=== PATIENT | male | born 1960 | race Caucasian/White ===

== ENCOUNTER 2017-10-23 08:33 | Emergency (ER) | payer OTHER, MEDICAID ==
[2017-10-23] MEDS ORDERED: IPRATROPIUM/ALBUTEROL 3 ML DEYVIAL IH ONE (09:15)
--- NOTE | 2017-10-23 09:18 | EDPHY ---
H & P Stated Complaint: Cough, body aches, general malaise for 2 days - Personal History Current Tetanus Diphtheria and Acellular Pertussis (TDAP): Yes - Medical/Surgical History Hx Asthma: No Hx Chronic Respiratory Disease: No Hx Diabetes: No Hx Cardiac Disease: No Hx Renal Disease: No Hx Cirrhosis: No Hx Alcoholism: No Hx HIV/AIDS: No Hx Splenectomy or Spleen Trauma: No Other PMH: Schizo. - Social History Smoking Status: Current every day smoker Time Seen by Provider: 10/23/17 09:09 HPI/ROS: CHIEF COMPLAINT: Cough sinus congestion HISTORY OF PRESENT ILLNESS: 57-year-old male history of schizophrenia, daily tobacco use, complaining of 2-3 days of rhinorrhea, nonproductive cough, sinus congestion, sore throat. His stools have been slightly looser than usual. No melena hematochezia. No abdominal pain. No dyspnea. No nuchal rigidity. No headache. No otalgia. No back pain. PRIMARY CARE PROVIDER:None REVIEW OF SYSTEMS: A ten point review of systems was performed and is negative with the exception of the items mentioned in the HPI PAST MEDICAL & SURGICAL HISTORY: Schizophrenia SOCIAL HISTORY:Daily tobacco use. Works at [employer] in [place] PHYSICAL EXAM (Prior to examination, patient consented to physical exam, hands were washed and my usual and customary physical exam procedures followed) 1) GENERAL: Well-developed, well-nourished, alert and oriented. Appears to be in no acute distress. 2) HEAD: Normocephalic, atraumatic 3) HEENT: Pupils equal, round, reactive to light bilaterally. Sclera anicteric. Nasopharynx, oropharynx, clear, no lesions. Ears bilaterally with normal tympanic membranes. 4) NECK: Full range of motion, no meningeal signs. 5) LUNGS: Bilateral end-expiratory wheeze with 6) HEART: Regular rate and rhythm, no murmur, no heave, no gallop. 7) ABDOMEN: No guarding, no rebound, no focal tenderness, negative McBurney's, negative Londono's, negative Rovsing's, negative peritoneal sign, 8) MUSCULOSKELETAL: Moving all extremities, no focal areas of tenderness, no obvious trauma. No peripheral edema or discoloration. 9) BACK: No CVA tenderness, no midline vertebral tenderness, no fluctuance, no step-off, no obvious trauma, no visual or palpable abnormality. 10) SKIN: No rash, no petechiae. 11) Psychiatric: Patient is oriented X 3, there is no agitation. DIFFERENTIAL DIAGNOSIS: In no particular order include but limited to bronchiolitis, pneumonia, meningitis (Maria De Jesus Obrien) Constitutional: Initial Vital Signs Temperature (C) 36.8 C 10/23/17 08:42 Heart Rate 60 10/23/17 08:42 Respiratory Rate 18 10/23/17 08:42 Blood Pressure 118/58 L 10/23/17 08:42 O2 Sat (%) 91 L 10/23/17 08:42 O2 Delivery Mode Room Air Allergies/Adverse Reactions: codeine Allergy (Verified 08/26/13 17:21) Home Medications: Medication Instructions Recorded Prozac 10 MG (RX) 08/26/13 Restoril 08/26/13 Albuterol [Proventil Inhaler HFA 1 - 2 puffs IH Q4PRN PRN #1 mdi 10/23/17 (*)] Azithromycin [Zithromax] 500 mg PO DAILY #1 tablet 10/23/17 Zoloft 100mg (*) 10/23/17 Medical Decision Making - Diagnostics Imaging Results: Images reviewed myself (Maria De Jesus Obrien) ED Course/Re-evaluation: 10:41 a.m.: Re-evaluation, feeling improvement after DuoNeb treatment, lungs are clear bilaterally, maintaining normal saturations. Discussed his imaging results. Recommend smoking cessation. Will discharge home with albuterol, with will discharge home with azithromycin prescription. Will hold on steroids as he notes that he has had unpleasant reaction to steroids in the past combined with history of schizophrenia. Usual and customary respiratory precautions instructions provided. I saw this patient independently based on established practice protocols. Care of patient under supervision of secondary supervising physician Dr Mayes . (Maria De Jesus Obrien) Other Provider: The patient was evaluated and managed by the Physician Plant Taxonomist. My co- signature indicates that I have reviewed this chart and I agree with the findings and plan of care as documented. I am the secondary supervising physician. (Janelle Mayes) - Data Points Medications Given: Discontinued Medications Albuterol/Ipratropium (Duoneb) 3 ml IH EDNOW ONE Stop: 10/23/17 09:16 Last Admin: 10/23/17 09:21 Dose: 3 ml Departure - Departure Disposition: Home, Routine, Self-Care Clinical Impression: Acute bronchitis Condition: Good Instructions: Acute Bronchitis (ED) Additional Instructions: Return to the emergency department immediately for change in breathing habits, change in voice, change in swallowing habits, change in mental status, or any other symptoms that concern you. Referrals: [facility],. [Clinic] - As per Instructions Stand Alone Forms: Work Excuse Prescriptions: Albuterol [Proventil Inhaler HFA (*)] 1 - 2 puffs IH Q4PRN PRN #1 mdi PRN Reason: Cough, Moderate Azithromycin [Zithromax] 500 mg PO DAILY #1 tablet
[2017-10-23 11:12] VITALS: BP 118/68
== END 2017-10-23 11:12 | disposition home or self-care (01) ==
DX: J20.9 Acute bronchitis, unspecified (principal); F17.200 Nicotine dependence, unspecified, uncomplicated

== ENCOUNTER 2018-01-19 15:44 | Emergency (ER) | payer OTHER, MEDICAID ==
--- NOTE | 2018-01-19 17:00 | EDPHY ---
H & P Stated Complaint: bilat knee weakness "they buckle" x years-no new trauma Time Seen by Provider: 01/19/18 16:57 HPI/ROS: HPI: This is a 57-year-old male who presents with Chief Complaint: bilateral knee weakness "they buckle" x years-no new trauma Location: Bilateral knees Quality: Pain Duration: Several months Signs and Symptoms: No bleeding, no radiation, no numbness, no weakness, no tingling, no incontinence, no decreased range of motion, no swelling, no pain, no fever Timing: Daily Severity: Moderate Context: Patient has a history of schizoaffective disorder, presents with several month history of right greater than left bilateral anterior knee pain with episodes of"they buckle." Has taken Excedrin with mild relief. 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 Denies radiation, weakness, decreased range of motion. No trauma or injury. No history of gout. Modifying Factors: Excedrin with mild relief Comment: ROS: A comprehensive 10 system review of systems is otherwise negative aside from elements mentioned in the history of present illness. MEDICAL/SURGICAL/SOCIAL HISTORY: Medical history: Schizoaffective Surgical history: Denies Social history: Smoker. CONSTITUTIONAL: Untidy, middle-aged white male, appears older than stated age, awake and alert, no obvious distress HEENT: Atraumatic and normocephalic. NECK: supple EXTREMITIES: 2/2 pulses, strength 5/5, bilateral KNEE: Mild crepitus with extension; no effusion, no medial and lateral joint line tenderness, full extension to 180, flexion to 120. No pain with varus and valgus exam. No pain with anterior drawer or posterior drawer test. DIP/PIP/MCP flexion/ extension intact with good light touch sensation. no deformities, no clubbing, no cyanosis or edema. NEUROLOGICAL: no focal neuro deficits. GCS 15. Light touch sensation intact. SKIN: Warm and dry, no erythema. no rash. Good capillary refill. Source: Patient Exam Limitations: No limitations - Medical/Surgical History Hx Asthma: No Hx Chronic Respiratory Disease: No Hx Diabetes: No Hx Cardiac Disease: No Hx Renal Disease: No Hx Cirrhosis: No Hx Alcoholism: No Hx HIV/AIDS: No Hx Splenectomy or Spleen Trauma: No Other PMH: Schizo. affective - Social History Smoking Status: Current every day smoker Constitutional: Initial Vital Signs Temperature (C) 36.7 C 01/19/18 15:48 Heart Rate 101 H 01/19/18 15:48 Respiratory Rate 16 01/19/18 15:48 Blood Pressure 155/85 H 01/19/18 15:48 O2 Sat (%) 92 01/19/18 15:48 O2 Delivery Mode Room Air Allergies/Adverse Reactions: codeine Allergy (Verified 08/26/13 17:21) Home Medications: Medication Instructions Recorded Ibuprofen [Ibu] 800 mg PO Q8 PRN #12 tablet 01/19/18 Lamkin Carbonate 01/19/18 Olanzapine 01/19/18 traZODone 01/19/18 Medical Decision Making - Diagnostics Imaging Results: Imaging Impressions Knee X-Ray 01/19/18 16:06 Impression: Negative bilateral knee radiographs. Knee X-Ray 01/19/18 16:09 Impression: Negative bilateral knee radiographs. Procedures: Procedure: Splint placement. A bilateral Shorty wraps were applied by the Emergency Room polygraph technician. After application of the splint I returned and re-examined the patient. The splint was adequately immobilizing the joint and distal to the splint the patient's circulation and sensation was intact. ED Course/Re-evaluation: Bilateral knee x-rays ordered my read via PAC shows no significant degenerative changes, no fracture, no effusion. Shorty wrap placed on both knees and given a prescription for ibuprofen 800 mg Ortho referral as needed No signs of neurovascular compromise/tenting of skin/compartment syndrome/ extremities and joints examined above and below area of concern and are neurovascularly intact/septic arthritis/gouty arthropathy. This patient was seen under the supervision of my secondary supervising physician. I evaluated care for this patient independently. Discussed this patient with Dr. Parra. Differential Diagnosis: Knee injury while [] including but not limited to fracture, ACL injury, contusion, muscular strain, and meniscus injury. Departure - Departure Disposition: Home, Routine, Self-Care Clinical Impression: Bilateral chronic knee pain Condition: Good Instructions: Knee Pain (ED) Additional Instructions: Wear the Shorty wrap while out of bed until pain free. Take Tylenol 650 mg every 4 hours and/or Ibuprofen 800 mg every 8 hours with food as needed for pain. Follow up with [facility] if symptoms continue to persist or worsen. The x-rays obtained in the emergency department today demonstrate no evidence of an obvious fracture. Return to the ER immediately if you experience new or worsening pain, discoloration, numbness, tingling, or any other symptoms that concern you. Referrals: [facility],. [Clinic] - As per Instructions Stand Alone Forms: Work Excuse Prescriptions: Ibuprofen [Ibu] 800 mg PO Q8 PRN #12 tablet PRN Reason: Pain, Moderate
[2018-01-19 17:40] VITALS: BP 119/66
== END 2018-01-19 17:40 | disposition home or self-care (01) ==
DX: M25.561 Pain in right knee (principal); M25.562 Pain in left knee; M62.81 Muscle weakness (generalized); F17.200 Nicotine dependence, unspecified, uncomplicated

== ENCOUNTER 2018-04-30 13:00 | Inpatient (IN) | payer MEDICAID, OTHER ==
[2018-04-30] MEDS ORDERED: IPRATROPIUM/ALBUTEROL 3 ML DEYVIAL IH ONE ×2 (14:48→14:50)
[2018-04-30] MEDS ORDERED: NS 1,000 ML IV ONE (14:49)
--- NOTE | 2018-04-30 14:51 | EDPHY ---
H & P Stated Complaint: SOB, cough Time Seen by Provider: 04/30/18 14:37 HPI/ROS: CHIEF COMPLAINT: Cough, shortness of breath HISTORY OF PRESENT ILLNESS: 58-year-old male with schizoaffective disorder presents with cough and shortness of breath. 2 weeks ago he was diagnosed with influenza. He did not take Tamiflu. He has had a persistent cough since the diagnosis of influenza, gradually worsening and associated with shortness of breath. Associated with lack of appetite and loose stools. No known fever. REVIEW OF SYSTEMS: complete 10 point ROS reviewed and is negative except for the noted elements in the HPI - Personal History Current Tetanus/Diphtheria Vaccine: Yes Current Tetanus Diphtheria and Acellular Pertussis (TDAP): Yes - Medical/Surgical History Hx Asthma: No Hx Chronic Respiratory Disease: No Hx Diabetes: No Hx Cardiac Disease: No Hx Renal Disease: No Hx Cirrhosis: No Hx Alcoholism: No Hx HIV/AIDS: No Hx Splenectomy or Spleen Trauma: No Other PMH: Schizo. affective - Social History Smoking Status: Current every day smoker Alcohol Use: Sober Drug Use: None - Physical Exam Exam: General Appearance: Alert, pleasant, nontoxic-appearing Eyes: Pupils equal and round, no conjunctival pallor ENT, Mouth: Mucous membranes moist Neck: Normal inspection Respiratory: Diffuse inspiratory and expiratory wheezing Cardiovascular: Regular rate and rhythm Gastrointestinal: Abdomen is soft and nontender Neurological: A&O, nonfocal, normal gait Skin: Warm and dry, no rash Extremities: Nontender, no pedal edema Psychiatric: Mood and affect normal Constitutional: Initial Vital Signs Temperature (C) 36.7 C 04/30/18 13:06 Heart Rate 80 04/30/18 13:06 Respiratory Rate 20 04/30/18 13:06 Blood Pressure 94/64 L 04/30/18 13:06 O2 Sat (%) 93 04/30/18 13:06 O2 Delivery Mode Nasal Cannula O2 (L/minute) 2 Allergies/Adverse Reactions: No Known Allergies Allergy (Verified 04/30/18 13:05) Home Medications: Medication Instructions Recorded Acetaminophen [Tylenol 325mg (*)] 650 mg PO Q4HRS PRN tab 03/15/18 Loperamide HCl [Imodium 2 mg (*)] 2 mg PO QID PRN cap 03/15/18 Hydroxyzine Pamoate [Vistaril] 50 mg PO BID PRN 04/30/18 Ibuprofen [Motrin (*)] 800 mg PO Q6H PRN 04/30/18 Sertraline HCl [Zoloft 100mg (*)] 200 mg PO DAILY 04/30/18 traZODone [traZODONE 100MG (*)] 100 mg PO HS 04/30/18 Medical Decision Making - Diagnostics Imaging Results: CXR: LLL infiltrate Imaging: I viewed and interpreted images myself ED Course/Re-evaluation: This pt presents with persistent cough, hypoxia and bronchospasm, concerning for pneumonia. IV NS 1 liter given. Duoneb and Solumedrol 125mg IV given. O2 sat 88% RA after neb. CXR: LLL pneumonia. Blood cx's done, Rocephin and Zithromax IV given. He does not meet SIRS criteria, though initial BP borderline, improved after IVF. Serum lactate normal. The hospitalist service was consulted for admission. Pt stable throughout ED stay. Differential Diagnosis: includes though not limited to acute bronchitis, PE, PTX, empyema, pulm edema - Data Points Laboratory Results: Laboratory Results 04/30/18 15:52 04/30/18 15:52 Microbiology Results: MICROBIOLOGY 04/30/18 13:24 Blood Blood Culture - Preliminary Staphylococcus Hominis 04/30/18 13:24 Blood Blood Panel (PCR) - Final Staph Coagulase Negative 04/30/18 15:52 Blood Blood Culture - Preliminary Medications Given: Acetaminophen (Tylenol) 650 mg PO Q4HRS PRN PRN Reason: Pain, Mild/Fever, Can Take PO Stop: 10/27/18 16:37 Last Admin: 05/02/18 16:16 Dose: 650 mg Albuterol/Ipratropium (Duoneb) 3 ml IH Q6 JOLANTA Stop: 10/28/18 17:59 Last Admin: 05/02/18 17:00 Dose: 3 ml Enoxaparin Sodium (Lovenox) 40 mg SC DAILY JOLANTA Stop: 10/28/18 08:59 Last Admin: 05/02/18 09:40 Dose: 40 mg Guaifenesin (Mucinex) 600 mg PO BID JOLANTA Stop: 10/27/18 20:59 Last Admin: 05/02/18 09:40 Dose: 600 mg Guaifenesin/Dextromethorphan (Robitussin Dm Oral Liquid) 10 ml PO Q4HRS PRN PRN Reason: Cough, Moderate Stop: 10/27/18 16:38 Last Admin: 05/02/18 05:55 Dose: 10 ml Hydroxyzine HCl (Hydroxyzine Hcl) 25 mg PO Q6HRS PRN PRN Reason: Anxiety Stop: 10/27/18 17:15 Last Admin: 05/02/18 03:49 Dose: 25 mg Azithromycin 500 mg/ Sodium (Chloride) 255 mls @ 255 mls/hr IV DAILY JOLANTA PRN Reason: Protocol Stop: 05/31/18 08:59 Last Admin: 05/02/18 10:33 Dose: 255 mls Ceftriaxone Sodium/Dextrose (Rocephin 1 Gm (Premix)) 50 mls @ 100 mls/hr IV DAILY JOLANTA PRN Reason: Protocol Stop: 05/31/18 08:59 Last Admin: 05/02/18 09:40 Dose: 50 mls Ibuprofen (Motrin) 800 mg PO Q6H PRN PRN Reason: Pain, Mild Stop: 10/28/18 12:01 Last Admin: 05/02/18 03:47 Dose: 800 mg Loperamide HCl ( Imodium) 2 mg PO QID PRN PRN Reason: Diarrhea/Loose Stools Stop: 10/29/18 15:10 Last Admin: 05/02/18 16:16 Dose: 2 mg Nicotine (Nicoderm Cq) 21 mg TD DAILY [facility] Stop: 10/28/18 12:14 Last Admin: 05/02/18 09:40 Dose: 21 mg Ondansetron HCl (Zofran) 4 mg IVP Q4HRS PRN PRN Reason: Nausea/Vomiting, Can't Take PO Stop: 10/27/18 16:37 Last Admin: 05/02/18 05:55 Dose: 4 mg Prednisone (Prednisone) 40 mg PO DAILY JOLANTA Stop: 10/28/18 12:14 Last Admin: 05/02/18 09:40 Dose: 40 mg Sertraline HCl (Zoloft) 200 mg PO DAILY [facility] Stop: 10/29/18 08:59 Last Admin: 05/02/18 09:40 Dose: 200 mg Trazodone HCl (Trazodone) 100 mg PO HS [facility] Stop: 10/28/18 20:59 Last Admin: 05/01/18 20:26 Dose: 100 mg Discontinued Medications Albuterol/Ipratropium (Duoneb) 3 ml IH EDNOW ONE Stop: 04/30/18 14:49 Last Admin: 04/30/18 15:15 Dose: 3 ml Albuterol/Ipratropium (Duoneb) 3 ml IH EDNOW ONE Stop: 04/30/18 14:51 Last Admin: 04/30/18 15:16 Dose: 3 ml Sodium Chloride (Ns) 1,000 mls @ 0 mls/hr IV ONCE ONE; Wide Open PRN Reason: Protocol Stop: 04/30/18 14:50 Last Admin: 04/30/18 15:16 Dose: 1,000 mls Azithromycin 500 mg/ Sodium (Chloride) 255 mls @ 255 mls/hr IV EDNOW ONE PRN Reason: Protocol Stop: 04/30/18 16:35 Last Admin: 04/30/18 16:50 Dose: 255 mls Ceftriaxone Sodium/Dextrose (Rocephin 1 Gm (Premix)) 50 mls @ 100 mls/hr IV EDNOW ONE PRN Reason: Protocol Stop: 04/30/18 16:04 Last Admin: 04/30/18 16:01 Dose: 50 mls Sodium Chloride (Ns) 1,000 mls @ 100 mls/hr IV CONT JOLANTA Stop: 05/01/18 02:44 Last Admin: 04/30/18 18:03 Dose: 1,000 mls Ibuprofen (Motrin) 600 mg PO EDNOW ONE Stop: 04/30/18 15:08 Last Admin: 04/30/18 15:08 Dose: 600 mg Oseltamivir Phosphate (Tamiflu) 75 mg PO BIDMEAL JOLANTA Stop: 05/05/18 08:01 Last Admin: 05/01/18 11:26 Dose: Not Given Pneumococcal Polyvalent Vaccine (Pneumovax 23) 0.5 ml IM .ONCE ONE Stop: 05/01/18 12:11 Last Admin: 05/01/18 13:02 Dose: 0.5 ml Departure - Departure Disposition: [facility] Acute Condition: Fair
[2018-04-30] MEDS ORDERED: IBUPROFEN 600 MG TAB PO ONE ×2 (15:04→15:07)
[2018-04-30] MEDS ORDERED: AZITHROMYCIN IV 500 MG in NS 250 ML IV ONE (15:36)
[2018-04-30 16:12] LABS: PLATELET COUNT 245 10^3/uL (150-400)
[2018-04-30] MEDS ORDERED: ONDANSETRON DISINTEGRATING 4 MG TAB PO PRN (16:38)
[2018-04-30] MEDS ORDERED: ALBUTEROL 3 ML DEYVIAL IH PRN (16:38)
[2018-04-30] MEDS ORDERED: ONDANSETRON 4 MG/2 ML VIAL IVP PRN (16:38)
[2018-04-30] MEDS ORDERED: NS 1,000 ML IV SCH (16:45)
--- NOTE | 2018-04-30 17:07 | PDGENHP ---
History and Physical - Chief Complaint cough, SOB - History of Present Illness 58 yo male with h/o schizoaffective disorder presents to ED with cough, SOB and body aches. His symptoms started >2 weeks ago with diarrhea and vomiting. He says he was seen here and diagnosed with influenza, but I do not see a record of that. Over the past several days, he has developed productive cough and body aches. He continues to have diarrhea with urgency, which he describes as watery. He has not vomited for several days, but reports poor oral intake. He denies CP. No fevers, chills or rigors. In the ED, CXR was suggestive of LLL pneumonia. He was given a fluid bolus, blood cultures were drawn, he received IV Ceftriaxone and Azithromycin and he is admitted for further management. History Information - Allergies/Home Medication List Allergies/Adverse Reactions: No Known Allergies Allergy (Verified 04/30/18 13:05) Home Medications: Vistaril 04/30/18 [Last Taken Unknown] Zoloft 25mg (*) 04/30/18 [Last Taken Unknown] traZODone 04/30/18 [Last Taken Unknown] I have personally reviewed and updated: family history, medical history, social history, surgical history - Past Medical History Additional medical history: Schizoaffective disorder - Surgical History Reports: no pertinent surgical hx - Family History Positive for: non-pertinent - Social History Smoking Status: Current every day smoker Alcohol Use: Sober Drug Use: None Review of Systems Review of Systems: ROS: 10pt was reviewed & negative except for what was stated in HPI & below Physical Exam Physical Exam: Temp Pulse Resp BP Pulse Ox 36.7 C 83 16 135/90 H 98 04/30/18 16:01 04/30/18 16:01 04/30/18 16:01 04/30/18 16:01 04/30/18 16:01 Constitutional: no apparent distress Eyes: PERRL Ears, Nose, Mouth, Throat: moist mucous membranes Cardiovascular: tachycardia Respiratory: no respiratory distress, reduced air movement, inspiratory crackles Gastrointestinal: normoactive bowel sounds, soft, non-tender abdomen Skin: warm Musculoskeletal: full muscle strength Neurologic: AAOx3 Psychiatric: interacting appropriately Lab Data & Imaging Review 04/30/18 15:52 04/30/18 15:52 WBC 11.46 10^3/uL (3.80-9.50) H 04/30/18 15:52 RBC 4.51 10^6/uL (4.40-6.38) 04/30/18 15:52 Hgb 13.1 g/dL (13.7-17.5) L 04/30/18 15:52 Hct 39.5 % (40.0-51.0) L 04/30/18 15:52 MCV 87.6 fL (81.5-99.8) 04/30/18 15:52 MCH 29.0 pg (27.9-34.1) 04/30/18 15:52 MCHC 33.2 g/dL (32.4-36.7) 04/30/18 15:52 RDW 15.5 % (11.5-15.2) H 04/30/18 15:52 Plt Count 245 10^3/uL (150-400) 04/30/18 15:52 MPV 10.4 fL (8.7-11.7) 04/30/18 15:52 Neut % (Auto) Not Reported 04/30/18 15:52 Lymph % (Auto) Not Reported 04/30/18 15:52 [place] % (Auto) Not Reported 04/30/18 15:52 Eos % (Auto) Not Reported 04/30/18 15:52 Baso % (Auto) Not Reported 04/30/18 15:52 Nucleat RBC Rel Count Not Reported 04/30/18 15:52 Absolute Neuts (auto) Not Reported 04/30/18 15:52 Absolute Lymphs (auto) Not Reported 04/30/18 15:52 Absolute Monos (auto) Not Reported 04/30/18 15:52 Absolute Eos (auto) Not Reported 04/30/18 15:52 Absolute Basos (auto) Not Reported 04/30/18 15:52 Absolute Nucleated RBC Not Reported 04/30/18 15:52 Immature Gran % Not Reported 04/30/18 15:52 Seg Neutrophils % 39.4 % 04/30/18 15:52 Band Neutrophils % 43.5 % 04/30/18 15:52 Lymphocytes % 13.1 % 04/30/18 15:52 Monocytes % 1.0 % 04/30/18 15:52 Eosinophils % 3.0 % 04/30/18 15:52 Basophils % 0.0 % 04/30/18 15:52 Metamyelocytes % 0.0 % 04/30/18 15:52 Myelocytes % 0.0 % 04/30/18 15:52 Promyelocytes % 0.0 % 04/30/18 15:52 Blast Cells % 0.0 % 04/30/18 15:52 Immature Gran # Not Reported 04/30/18 15:52 Absolute Seg Neuts 4.52 10^3/uL (1.70-6.50) 04/30/18 15:52 Absolute Band Neuts 4.99 10^3/uL (0.00-0.70) H 04/30/18 15:52 Absolute Lymphocytes 1.50 10^3/uL (1.00-3.00) 04/30/18 15:52 Absolute Monocytes 0.11 10^3/uL (0.30-0.80) L 04/30/18 15:52 Absolute Eosinophils 0.34 10^3/uL (0.03-0.40) 04/30/18 15:52 Absolute Basophils 0.00 10^3/uL (0.02-0.10) L 04/30/18 15:52 Absolute Metamyelocyte 0.00 10^3/mL (0.00-0.00) 04/30/18 15:52 Absolute Myelocytes 0.00 10^3/mL (0.00-0.00) 04/30/18 15:52 Absolute Promyelocytes 0.00 10^3/uL (0.00-0.00) 04/30/18 15:52 Absolute Plasma Cells 0.00 10^3/uL (0.00-0.00) 04/30/18 15:52 Nucleated RBCs 0 /100 WBC (0-0) 04/30/18 15:52 RBC/WBC/PLT Morphology NORMAL (NORMAL) 04/30/18 15:52 Absolute Blast Cells 0.00 10^3/uL (0.00-0.00) 04/30/18 15:52 Plasma Cells % 0.0 % 04/30/18 15:52 Platelet Estimate ADEQUATE (ADEQ) 04/30/18 15:52 VBG Lactic Acid 1.2 mmol/L (0.7-2.1) 04/30/18 15:52 Sodium 137 mEq/L (135-145) 04/30/18 15:52 Potassium 4.5 mEq/L (3.5-5.2) 04/30/18 15:52 Chloride 103 mEq/L (97-110) 04/30/18 15:52 Carbon Dioxide 27 mEq/l (22-31) 04/30/18 15:52 Anion Gap 7 mEq/L (6-14) 04/30/18 15:52 BUN 40 mg/dL (7-23) H 04/30/18 15:52 Creatinine 1.1 mg/dL (0.7-1.3) 04/30/18 15:52 Estimated GFR > 60 04/30/18 15:52 Glucose 102 mg/dL (70-100) H 04/30/18 15:52 Calcium 9.0 mg/dL (8.5-10.4) 04/30/18 15:52 Visualized and Interpreted Chest x-ray results: Yes Chest X-Ray results: infiltrate Assessment & Plan Assessment: CAP - LLL infiltrate on CXR. Prior influenza hx unclear. Blood cultures pending. -Ceftriaxone/Azithromycin -send sputum Cx -based on +influenza hx will start tamiflu and send RVP, d/c tamiflu if negative -supportive care with anti-tussives, prn nebs AHRF - 2/2 above, requiring 2 LPM on admission -tx for pna as above -wean O2 as able Diarrhea - send GI PCR Schizoaffective disorder - resume home meds when med rec completed Full code DVT PPLX - Lovenox Dispo - admit to inpt, anticipate >48 hrs hospitalization for ongoing management of pneumonia and hypoxemia
[2018-04-30] MEDS ORDERED: OSELTAMIVIR PHOSPHATE 75 MG CAP ONE (18:05)
[2018-04-30] MEDS: OSELTAMIVIR PHOSPHATE 75 MG CAP PO SCH (18:15)
[2018-04-30] MEDS: guaiFENesin 600 MG TAB.ER PO SCH (20:55)
[2018-04-30] MEDS: ACETAMINOPHEN 325 MG TAB PO PRN (20:55)
[2018-05-01 06:04] LABS: PLATELET COUNT 229 10^3/uL (150-400)
[2018-05-01] MEDS: ENOXAPARIN 40 MG/0.4 ML SYR SC SCH (09:45)
[2018-05-01] MEDS: guaiFENesin 600 MG TAB.ER PO SCH ×2 (09:49→20:26)
--- NOTE | 2018-05-01 09:49 | PDMN ---
Medical Necessity Medical necessity: Pt meets INPT criteria per MD as of 04/30/18 and [facility] [place] Pneumonia, Community Acquired (est. LOS >2 MN for eval/tx of pneumonia with LLL infiltrate, influenza, hypoxemia, diarrhea, comorbid schizoaffective disorder).
[2018-05-01] MEDS: AZITHROMYCIN IV 500 MG in NS 250 ML IV SCH (10:41)
[2018-05-01] MEDS: OSELTAMIVIR PHOSPHATE 75 MG CAP PO SCH (11:26)
[2018-05-01] MEDS: ACETAMINOPHEN 325 MG TAB PO PRN ×2 (11:37→20:26)
[2018-05-01] MEDS ORDERED: hydrOXYzine HCL 50 MG TAB PO PRN (12:02)
[2018-05-01] MEDS ORDERED: PNEUMOCOCCAL 0.5ML VACCINE VIAL (PNEUMOVAX 23) IM ONE (12:10)
[2018-05-01] MEDS: predniSONE 20 MG TAB PO SCH (13:04)
[2018-05-01] MEDS: NICOTINE 21 MG/24 HR PATCH TD SCH (13:04)
[2018-05-01] MEDS ORDERED: IPRATROPIUM/ALBUTEROL 3 ML DEYVIAL ONE (15:25)
[2018-05-01] MEDS: IPRATROPIUM/ALBUTEROL 3 ML DEYVIAL IH SCH ×2 (15:35→20:48)
[2018-05-01] MEDS: hydrOXYzine HCL 25 MG TAB PO PRN (15:46)
[2018-05-01] MEDS: IBUPROFEN 800 MG TAB PO PRN ×2 (15:47→21:30)
--- NOTE | 2018-05-01 16:54 | ASMTCMCOM ---
CM Note CM Note Notes: Reviewed chart. Pt admitted for pneumonia. History includes schizoaffective disorder. Pt is a current every day smoker. He is single and lives alone. Pt has a case sealer/advocate named Bonny Cantu / . Discharge needs remain unclear at this time. Anticipate pt will likely discharge home independently when medically stable. CM will continue to follow for any potential needs. Discharge Plan: Likely independent Date Signed: 05/01/2018 04:54 PM Electronically Signed By:Katey Humphries RN
--- NOTE | 2018-05-01 17:54 | HOSPPROG ---
Hospitalist Progress Note Assessment/Plan: * Pneumonia -Ceftriaxone/azithro * COPD exacerbation -add prednisone and scheduled nebs * Acute respiratory failure -increased wheezing today with increased WOB noted -continue O2 and respiratory support * Viral bronchitis - coronavirus -suspect initial viral bronchitis with subsequent bacterial superinfection * Schizoaffective disorder * 04/23 BC coag negative staph - contaminant Subjective: Feels terrible Objective: Vital Signs Temp Pulse Resp BP Pulse Ox 36.4 C 97 18 104/50 L 96 05/01/18 15:24 05/01/18 15:35 05/01/18 15:35 05/01/18 15:24 05/01/18 15:35 Microbiology 05/01/18 10:38 - Final Sputum, Expectorated 05/01/18 10:47 Gastrointestinal Tract Panel (PCR) - Final Stool No Organism Detected By Pcr 04/30/18 16:55 Respiratory Panel (PCR) - Final Nasal, Sinus - Swab Coronovirus Oc43 Detected Laboratory Results 05/01/18 05:35 05/01/18 05:35 04/30/18 05/01/18 05/02/18 05:59 05:59 05:59 Intake Total 100 Balance 100 CXR viewed - my personal interpretation is - significant LLL infiltrate old chart reviewed - was dc from inpatient psych 03/07 - Physical Exam Constitutional: uncomfortable, other (lying in bed, curled in ball with increased WOB) Cardiovascular: regular rate and rhythym, no murmur, rub, or gallop Respiratory: expiratory wheeze, respiratory distress, rhonchi Gastrointestinal: normoactive bowel sounds, soft, non-tender abdomen, no palpable masses Skin: no rashes or abrasions, no fluctuance, no induration Neurologic: AAOx3, sensation intact bilaterally Psychiatric: interacting appropriately, not anxious, not encephalopathic, thought process linear ICD10 Worksheet Patient Problems: Problems Problem Status Onset Nicotine dependence with withdrawal Acute Amphetamine abuse in remission Acute PTSD (post-traumatic stress disorder) Chronic Unspecified psychosis Acute
[2018-05-01] MEDS: traZODone 100 MG TAB PO SCH (20:26)
[2018-05-02] MEDS: IBUPROFEN 800 MG TAB PO PRN ×2 (03:47→18:05)
[2018-05-02] MEDS: hydrOXYzine HCL 25 MG TAB PO PRN (03:49)
[2018-05-02 05:46] LABS: PLATELET COUNT 246 10^3/uL (150-400)
[2018-05-02] MEDS: ACETAMINOPHEN 325 MG TAB PO PRN ×2 (05:55→16:16)
[2018-05-02] MEDS: GUAIFENESIN/DM 10 ML UDCUP PO PRN ×2 (05:55→22:08)
[2018-05-02] MEDS: IPRATROPIUM/ALBUTEROL 3 ML DEYVIAL IH SCH ×4 (06:25→21:23)
[2018-05-02] MEDS: SERTRALINE HCL 100 MG TAB PO SCH (09:40)
[2018-05-02] MEDS: guaiFENesin 600 MG TAB.ER PO SCH ×2 (09:40→20:16)
[2018-05-02] MEDS: ENOXAPARIN 40 MG/0.4 ML SYR SC SCH (09:40)
[2018-05-02] MEDS: predniSONE 20 MG TAB PO SCH (09:40)
[2018-05-02] MEDS: NICOTINE 21 MG/24 HR PATCH TD SCH (09:40)
[2018-05-02] MEDS: AZITHROMYCIN IV 500 MG in NS 250 ML IV SCH (10:33)
[2018-05-02] MEDS: LOPERAMIDE HCL 2 MG CAP PO PRN (16:16)
--- NOTE | 2018-05-02 17:09 | ASMTCMCOM ---
CM Note CM Note Notes: CM met with patient, the visit was difficult as patient experienced frequent bouts of coughing. Patient states he is currently living at the [facility], CM gave him the phone numbers to call so he can inform the half-way he is currently inpatient. 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 CM called with patient to [phone], we asked for Addie Gomez and informed her he is currently hospitalized. She shared she believes he has missed more than 5 shifts without contact but would be open to accepting a letter stating he is hospitalized. CM asked patient if he is connected to the [facility] Medicaid Community Mental Health Waiver, he states he does not know and does not think so. He is connected to at [facility], Bonny Galvan. CM encouraged him to contact her tomorrow. Patient likely to discharge in 1-2 days, we are currently watching his oxygen. CM to follow. D/C Plan: Independent, [facility]. Date Signed: 05/02/2018 05:08 PM Electronically Signed By:Amy Lynn
--- NOTE | 2018-05-02 17:24 | ASMTCMCOM ---
CM Note CM Note Notes: Patient called the [facility] and spoke with Nhit. He informed them he is currently hospitalized and has been since 04/30/18. The patient told the CM he still has his locker and this is a one time deal because he has not contacted them yet. He states understanding that if he is in this situation again he will need to call every night. Patient signed TRESA to share his inpatient status with [facility], COLLIN sent email to:[email or web address]. Pt states awareness he likely does not have a job anymore but is grateful we tried. CM to follow. D/C Plan: Jail. Date Signed: 05/02/2018 05:24 PM Electronically Signed By:Amy Lynn
--- NOTE | 2018-05-02 17:42 | HOSPPROG ---
Hospitalist Progress Note Assessment/Plan: * Pneumonia -Ceftriaxone/azithro * COPD exacerbation -prednisone and scheduled nebs * Acute respiratory failure -wean O2 -discharge with O2 would be difficult as he is homeless, going to retirement * Viral bronchitis - coronavirus -suspect initial viral bronchitis with subsequent bacterial superinfection * Schizoaffective disorder * 04/23 BC coag negative staph - contaminant Subjective: Still SOB Objective: Vital Signs Temp Pulse Resp BP Pulse Ox 36.3 C 68 16 96/62 L 93 05/02/18 15:18 05/02/18 17:00 05/02/18 17:00 05/02/18 15:18 05/02/18 17:00 Microbiology 05/01/18 10:38 - Final Sputum, Expectorated 05/01/18 10:47 Gastrointestinal Tract Panel (PCR) - Final Stool No Organism Detected By Pcr Laboratory Results 05/02/18 05:15 05/01/18 05:35 05/01/18 05/02/18 05/03/18 05:59 05:59 05:59 Intake Total 100 960 Balance 100 960 - Physical Exam Constitutional: no apparent distress, appears nourished, not in pain Cardiovascular: regular rate and rhythym, no murmur, rub, or gallop Respiratory: expiratory wheeze, inspiratory crackles, respiratory distress, rhonchi Gastrointestinal: normoactive bowel sounds, soft, non-tender abdomen, no palpable masses Skin: no rashes or abrasions, no fluctuance, no induration Neurologic: AAOx3, sensation intact bilaterally Psychiatric: interacting appropriately, not anxious, not encephalopathic, thought process linear ICD10 Worksheet Patient Problems: Problems Problem Status Onset Nicotine dependence with withdrawal Acute Amphetamine abuse in remission Acute PTSD (post-traumatic stress disorder) Chronic Unspecified psychosis Acute
[2018-05-02] MEDS: traZODone 100 MG TAB PO SCH (20:16)
[2018-05-03] MEDS: IPRATROPIUM/ALBUTEROL 3 ML DEYVIAL IH SCH ×4 (05:24→23:43)
[2018-05-03] MEDS: SERTRALINE HCL 100 MG TAB PO SCH (09:13)
[2018-05-03] MEDS: ENOXAPARIN 40 MG/0.4 ML SYR SC SCH (09:14)
[2018-05-03] MEDS: NICOTINE 21 MG/24 HR PATCH TD SCH (09:14)
[2018-05-03] MEDS: guaiFENesin 600 MG TAB.ER PO SCH ×2 (09:14→21:52)
[2018-05-03] MEDS: predniSONE 20 MG TAB PO SCH (09:14)
[2018-05-03] MEDS: AZITHROMYCIN IV 500 MG in NS 250 ML IV SCH (11:09)
[2018-05-03] MEDS: IBUPROFEN 800 MG TAB PO PRN (11:25)
--- NOTE | 2018-05-03 14:57 | HOSPPROG ---
Hospitalist Progress Note Assessment/Plan: * Pneumonia -Continue ceftriaxone/azithro, Day 3 of likely 5 day course * COPD exacerbation -prednisone (day 3/5) and scheduled nebs * Acute respiratory failure -wean O2 -discharge with O2 would be difficult as he is homeless, going to snf * Viral bronchitis - coronavirus -suspect initial viral bronchitis with subsequent bacterial superinfection * Schizoaffective disorder * 04/23 BC coag negative staph - contaminant Subjective: Patient reports continued improvement in breathing this AM Objective: Vital Signs Temp Pulse Resp BP Pulse Ox 36.4 C 76 16 124/77 H 94 05/03/18 11:18 05/03/18 11:18 05/03/18 11:18 05/03/18 11:18 05/03/18 11:18 Microbiology 05/01/18 10:38 - Final Sputum, Expectorated Laboratory Results 05/02/18 05:15 05/01/18 05:35 05/02/18 05/03/18 05/04/18 05:59 05:59 05:59 Intake Total 960 350 Balance 960 350 - Physical Exam Constitutional: no apparent distress, unkempt Eyes: PERRL Ears, Nose, Mouth, Throat: moist mucous membranes Cardiovascular: regular rate and rhythym Respiratory: reduced air movement Skin: normal color Neurologic: AAOx3 Psychiatric: interacting appropriately ICD10 Worksheet Patient Problems: Problems Problem Status Onset Amphetamine abuse in remission Acute Nicotine dependence with withdrawal Acute Unspecified psychosis Acute PTSD (post-traumatic stress disorder) Chronic
[2018-05-03] MEDS: hydrOXYzine HCL 25 MG TAB PO PRN (16:12)
[2018-05-03] MEDS: traZODone 100 MG TAB PO SCH (21:52)
[2018-05-04] MEDS: GUAIFENESIN/DM 10 ML UDCUP PO PRN (01:23)
[2018-05-04] MEDS: IPRATROPIUM/ALBUTEROL 3 ML DEYVIAL IH SCH ×3 (05:31→15:25)
[2018-05-04] MEDS: ENOXAPARIN 40 MG/0.4 ML SYR SC SCH (09:27)
[2018-05-04] MEDS: predniSONE 20 MG TAB PO SCH (09:28)
[2018-05-04] MEDS: SERTRALINE HCL 100 MG TAB PO SCH (09:28)
[2018-05-04] MEDS: guaiFENesin 600 MG TAB.ER PO SCH (09:28)
[2018-05-04] MEDS: NICOTINE 21 MG/24 HR PATCH TD SCH (09:28)
[2018-05-04] MEDS: LOPERAMIDE HCL 2 MG CAP PO PRN (09:39)
[2018-05-04] MEDS: AZITHROMYCIN IV 500 MG in NS 250 ML IV SCH (10:30)
[2018-05-04] MEDS: hydrOXYzine HCL 25 MG TAB PO PRN (11:39)
[2018-05-04] MEDS: IBUPROFEN 800 MG TAB PO PRN (11:54)
[2018-05-04 12:02] VITALS: BP 122/84
--- NOTE | 2018-05-04 12:36 | PDHOMEO2F ---
Home Oxygen Face to Face Home Orders: I certify that a physician or a nurse practitioner or physician's daycare assistant has had a [id number] encounter with this patient on the date of this order due to the diagnosis listed, which relates to the primary reason the patient requires home oxygen. Alternative treatments have been tried, or considered, and deemed ineffective. It is anticipated that supplemental oxygen will result in improvement with treatment. Home oxygen qualifying diagnosis: COPD Home oxygen secondary diagnosis: Pneumonia SpO2 on room air (%): 80 Frequency of home oxygen needed: continuous Home oxygen liters per minute: 1 Home oxygen delivery device: nasal cannula Concentrator: Yes E-tanks for mobility and back up: Yes If ordering portable O2, is the patient mobile in the home?: Yes I certify that, based on these findings, the home oxygen is medically necessary for this patient for the following length of time. Length of time home oxygen needed: 99 years
[2018-05-04] MEDS ORDERED: ALBUTEROL 60 PUFFS/8 GM MDI IH PRN (13:58)
--- NOTE | 2018-05-04 14:25 | ASMTLACE ---
LORRIE Length of stay for Answers: 4-6 days current admission Acuity / Level of Answers: Yes Care: Did the patient have an inpatient admission? Comorbidities - select Answers: Other Notes: Current every day smoke r all that apply # of Emergency department Answers: 3-4 visits in the last 6 months Social determinants Answers: Mental health diagnosis (anxiety, depression, pers onality disorders, etc.) Score: 14 Date Signed: 05/04/2018 02:25 PM Electronically Signed By:MIGUELANGEL Diaz
--- NOTE | 2018-05-04 16:08 | ASMTDCNOTE ---
Case Management Discharge Discharge Order Complete? Answers: Yes Patient to Obtain Answers: Independently Medications Transportation Arranged Answers: Bus Tokens EMTALA Complete Answers: No Case Management Transport Answers: No Form Complete Faxed Final Orders Answers: No Agency/Facility Transfer Answers: No Report Printed & Faxed to Receiving Agency Family Notified Answers: No Discharge Comments Notes: Pts case discussed w/ Dr. Schmitz. Pt is being d/c'd today. CM reserved a detention bed for pt and provided pt w/ a bus pass. No other needs at this time. CM available for changes. Plan: Independent Date Signed: 05/04/2018 04:07 PM Electronically Signed By:MIGUELANGEL Diaz
--- NOTE | 2018-05-04 16:24 | PDDCSUM ---
Discharge Summary Discharge Summary: Date of Admission: 04/30/2018 Date of Discharge: 05/04/2018 Consults: N/A Procedures: CXR Followup: PCP Hospital Course Problem List: * Pneumonia -On ceftriaxone/azithro as inpatient , transitioned to Levaquin to complete 5 day course * COPD exacerbation -prednisone (40 mg PO Prednisone qd), nebs, albuterol inhaler (given to him upon discharge) * Acute respiratory failure -02 challenge with exertion 02 sat dropped to 80% -Placed home oxygen consult, discussed with RT who reported patient does not have money to cover monthly cost of oxygen and does not have an address to be able to deliver oxygen to him, discussed with patient who understands the risk of being discharged without oxygen which he understands * Viral bronchitis - coronavirus -suspect initial viral bronchitis with subsequent bacterial superinfection * Schizoaffective disorder * 04/23 BC coag negative staph - contaminant Time spent on discharge was >35 minutes with >50% of time spent on patient education and counseling.
--- NOTE | 2018-05-04 16:34 | ASMTCMCOM ---
CM Note CM Note Notes: CM faxed letter to [facility] regarding dates of admission and d/c. A copy of the letter is put in pts chart along w/ confirmation. Date Signed: 05/04/2018 04:33 PM Electronically Signed By:MIGUELANGEL Diaz
== END 2018-05-04 16:07 | disposition home or self-care (01) | DRG 193 ==
LOC: F3E 18:21
PROVIDERS: ADMIT Hospitalist; ATTEND Hospitalist
DX: J18.8 Other pneumonia, unspecified organism (principal); J96.00 Acute respiratory failure, unspecified whether with hypoxia or hypercapnia; J44.1 Chronic obstructive pulmonary disease with (acute) exacerbation; J20.8 Acute bronchitis due to other specified organisms; B97.29 Other coronavirus as the cause of diseases classified elsewhere; F25.9 Schizoaffective disorder, unspecified; Z72.0 Tobacco use; Z23 Encounter for immunization
CPT/HCPCS: 96374; 97116-GP; 97161-GP; 97165-GO; G0009; J0456; J0696; J1650; J2405; J7512

== ENCOUNTER 2018-06-24 20:01 | Emergency (ER) | payer OTHER ==
--- NOTE | 2018-06-24 21:25 | EDPHY ---
H & P Stated Complaint: lower L back pain x2 days, diarrhea xmonths Time Seen by Provider: 06/24/18 21:25 HPI/ROS: CHIEF COMPLAINT: Lumbar back pain, chronic diarrhea HISTORY OF PRESENT ILLNESS: The patient presents to the ED with complaints of lumbar pain. The patient describes pain which is adjacent to the midline in the lumbar paraspinal muscles. The patient is currently homeless. He has a history of schizophrenia. The patient is living at the homeless custodial. Patient denies any acute lower extremity numbness or weakness. The patient was hospitalized for pneumonia in April of this year. REVIEW OF SYSTEMS: A comprehensive 10 point review of systems is otherwise negative aside from elements mentioned in the history of present illness. Source: Patient - Personal History Current Tetanus/Diphtheria Vaccine: Yes - Medical/Surgical History Hx Asthma: No Hx Chronic Respiratory Disease: No Hx Diabetes: No Hx Cardiac Disease: No Hx Renal Disease: No Hx Cirrhosis: No Hx Alcoholism: No Hx HIV/AIDS: No Hx Splenectomy or Spleen Trauma: No Other PMH: Schizo. affective - Social History Smoking Status: Heavy smoker - Physical Exam Exam: General Appearance: Alert, disheveled, no acute distress Eyes: Pupils equal and round no pallor or injection ENT, Mouth: Mucous membranes moist Respiratory: There are no retractions, lungs are clear to auscultation Cardiovascular: Regular rate and rhythm Gastrointestinal: Abdomen is soft and nontender, no masses, bowel sounds normal Neurological: A&O, normal motor function, normal sensory exam, normal cranial nerves Skin: Warm and dry, no rashes Musculoskeletal: Tenderness to palpation noted throughout the lumbar spinal region in the paraspinal muscles and not involving the midline Extremities: symmetrical, full range of motion Constitutional: Initial Vital Signs Temperature (C) 37.1 C 06/24/18 20:02 Heart Rate 108 H 06/24/18 20:02 Respiratory Rate 18 06/24/18 20:02 Blood Pressure 118/86 H 06/24/18 20:02 O2 Sat (%) 95 06/24/18 20:02 O2 Delivery Mode Room Air Allergies/Adverse Reactions: No Known Allergies Allergy (Verified 04/30/18 13:05) Home Medications: Medication Instructions Recorded Acetaminophen [Tylenol 325mg (*)] 650 mg PO Q4HRS PRN tab 03/15/18 Loperamide HCl [Imodium 2 mg (*)] 2 mg PO QID PRN cap 03/15/18 Hydroxyzine Pamoate [Vistaril] 50 mg PO BID PRN 04/30/18 Ibuprofen [Motrin (*)] 800 mg PO Q6H PRN 04/30/18 Sertraline HCl [Zoloft 100mg (*)] 200 mg PO DAILY 04/30/18 traZODone [traZODONE 100MG (*)] 100 mg PO HS 04/30/18 Albuterol [Proventil Neb] 3 ml IH Q2HRS PRN #3 deyvial 05/04/18 guaiFENesin [Mucinex 600 MG (*)] 600 mg PO BID tab.er 05/04/18 levOFLOXACIN [levAQUIN (*)] 750 mg PO DAILY AT 10AM #1 tab 05/04/18 predniSONE 40 mg PO DAILY #2 tablet 05/04/18 Medical Decision Making ED Course/Re-evaluation: The patient presents the emergency department with myofascial strain. He is requesting a muscle relaxant. The patient will be discharged home with a prepack for Flexeril. He is advised to use Advil. The patient should follow up with his primary care provider in [facility]. We did contact the homeless custodial the patient is eligible to go there this evening. He will be transferred there via taxi cab. Departure - Departure Disposition: Home, Routine, Self-Care Clinical Impression: Strain of lumbar paraspinal muscle Qualifiers: Encounter type: initial encounter Qualified Code(s): S39.012A - Strain of muscle, fascia and tendon of lower back, initial encounter Condition: Good Instructions: Musculoskeletal Pain (ED) Additional Instructions: 1. You have been given a prepack of Flexeril for your low back spasm. 2. Please schedule a follow-up appointment with [facility]. 3. Take Ibuprofen or Motrin 600 mg by mouth three times a day. Referrals: [facility],. [Clinic] - As per Instructions
[2018-06-24] MEDS ORDERED: CYCLOBENZAPRINE 10MG PREPACK#3 BTL TAKEHOME ONE (22:07)
[2018-06-24 22:17] VITALS: BP 120/85
[2018-06-24] MEDS ORDERED: IBUPROFEN 600 MG TAB PO ONE (22:31)
== END 2018-06-24 22:53 | disposition home or self-care (01) ==
LOC: EDUNIT#
DX: S39.012A Strain of muscle, fascia and tendon of lower back, initial encounter (principal); Z59.0 Homelessness

== ENCOUNTER 2018-07-26 11:21 | Inpatient (IN) | payer OTHER ==
--- NOTE | 2018-07-26 11:47 | EDPHY ---
H & P Stated Complaint: abdominal pain, low RECs blood work on Thursday Time Seen by Provider: 07/26/18 11:41 HPI/ROS: HPI: This is a 58-year-old male who presents with Chief Complaint: Lower abdominal pain and abnormal lab work Location: Lower abdomen Quality: Pain Duration: 4-7 days Signs and Symptoms: no fever, no nausea, no vomiting, no hematemesis, no blood in stool, no abdominal bloating, no diarrhea, no back pain, no urinary symptoms , no testicular/groin pain, no indigestion, no chest pain, no shortness of breath Timing: Daily Severity: [id number] Context: Patient presents accompanied by his fur drummer with concerns of abnormal lab work that was performed on Thursday by his primary care provider. client experience manager reports that he had a low RBC count. Patient also complains of 4- 7 day history of lower abdominal pain that is described as constant and nonradiating in nature. He reports it is the entire lower abdomen. He stays at the [facility] as he is homeless. Patient reports that he ate dinner last night without any difficulty. He denies fever, nausea, vomiting, diarrhea, urinary symptoms, back pain. He had a bowel movement this morning. Denies regular alcohol. Takes ibuprofen 100 mg twice daily pretty consistently for pain. Modifying Factors: None Comment: ROS: A comprehensive 10 system review of systems is otherwise negative aside from elements mentioned in the history of present illness. MEDICAL/SURGICAL/SOCIAL HISTORY: Medical history: Schizoaffective affective disorder. Surgical history: Knee surgery Social history: Homeless. Family history noncontributory. CONSTITUTIONAL: Talkative, adult white male, awake and alert, no obvious distress HEENT: Atraumatic and normocephalic, PERRL, EOMI. Pale conjunctiva, Nares patent; no rhinorrhea; no nasal mucosal edema. Tympanic membranes clear. Oropharynx clear, no exudate and moist pink mucosa. Airway patent. No lymphadenopathy. No meningismus. Cardiovascular: Normal S1/S2, tachycardia, regular rhythm, without murmur rub or gallop. PULMONARY/CHEST: Symmetrical and nontender. Clear to auscultation bilaterally. Good air movement. No accessory muscle usage. ABDOMEN: Soft, nondistended, mild generalized tenderness, no rebound, no guarding, no peritoneal signs, no masses or organomegaly. No CVAT. RECTAL: Good sphincter tone, light brown stool in vault, no external hemorrhoids , no fissures, no palpable masses, guaiac negative EXTREMITIES: 2/2 pulses, strength 5/5, no deformities, no clubbing, no cyanosis or edema. NEUROLOGICAL: no focal neuro deficits. GCS 15. SKIN: Warm and dry, pallor, no erythema. no rash. Good capillary refill. Source: Patient, Old records Exam Limitations: No limitations - Medical/Surgical History Hx Asthma: No Hx Chronic Respiratory Disease: No Hx Diabetes: No Hx Cardiac Disease: No Hx Renal Disease: No Hx Cirrhosis: No Hx Alcoholism: No Hx HIV/AIDS: No Hx Splenectomy or Spleen Trauma: No Other PMH: Schizo. affective, knee sx - Social History Smoking Status: Heavy smoker Constitutional: Initial Vital Signs Temperature (C) 36.7 C 07/26/18 11:27 Heart Rate 101 H 07/26/18 11:27 Respiratory Rate 18 07/26/18 11:27 Blood Pressure 119/63 07/26/18 11:27 O2 Sat (%) 95 07/26/18 11:27 O2 Delivery Mode Room Air Allergies/Adverse Reactions: No Known Allergies Allergy (Verified 07/26/18 13:27) Home Medications: Medication Instructions Recorded Loperamide HCl [Imodium 2 mg (*)] 2 mg PO QID PRN cap 03/15/18 Hydroxyzine Pamoate [Vistaril] 50 mg PO BID PRN 04/30/18 Sertraline HCl [Zoloft 100mg (*)] 200 mg PO HS 04/30/18 Acetaminophen [Tylenol ES 500 mg 500 - 1,000 mg PO Q6 PRN 07/26/18 (*)] Albuterol [Proventil Inhaler HFA 1 - 2 puffs IH Q4H PRN 07/26/18 (*)] Cyclobenzaprine [Flexeril 10 MG 5 mg PO BID PRN 07/26/18 (*)] Meloxicam 7.5 mg PO BID PRN 07/26/18 Naproxen Sodium [Aleve 220 MG (*)] 220 mg PO BID PRN 07/26/18 OLANZapine [Zyprexa] 5 mg PO HS 07/26/18 OLANZapine [Zyprexa] 20 mg PO HS 07/26/18 traZODone [traZODONE 50MG (*)] 50 - 100 mg PO HS 07/26/18 Medical Decision Making - Diagnostics Imaging Results: Imaging Impressions Abdomen CT 07/26/18 11:47 Impression: 1. Constipation. 2. No CT evidence of appendicitis, diverticulitis, abscess, or bowel obstruction. 3. Recommend follow-up colonoscopy when the patient's medical condition permits. Findings and recommendations discussed with Emergency Department Physician General Freight Agent, Kita Keane PA-C, at 1355 hours, on July 26, 2018. Final report concurs with initial preliminary interpretation. ED Course/Re-evaluation: Vital signs reviewed and show mild tachycardia. IV access, laboratory studies, urinalysis, CT abdomen and pelvis scan ordered 1200: Notified by tech that hemoglobin is 5.8 Guaiac stool obtained and negative 1234: Labs reviewed. H&H 5.8/21.2 microcytic type. No signs of leukocytosis/ platelet dysfunction/NOY/elevated LFTs/electrolyte imbalance/pancreatitis. 1314: Urinalysis shows trace ketones, trace LE; no lópez signs of infection 1400: Called by radiologist who reports CT abdomen and pelvis scan shows moderate constipation but no signs of appendicitis, no diverticulitis, no obstruction. Vital signs are stable and tachycardia has resolved. Suspect this significant anemia is more chronic in nature. ED decision to consult hospitalist for admission. Spoke with Dr. Witt kindly agrees to admit patient and provide further care. Spoke with Gastroenterology, Dr. Rowland, who kindly agrees to consult for EGD/colonoscopy. This patient was seen under the supervision of my primary supervising physician. I evaluated care for this patient independently. Differential Diagnosis: Abdominal pain including but not limited to appendicitis, cholecystitis, gastritis and urinary tract infection. - Data Points Laboratory Results: Laboratory Results 07/26/18 11:50 07/26/18 11:50 07/26/18 07/26/18 07/26/18 12:45 12:35 11:50 WBC RBC Hgb Hct MCV MCH MCHC RDW Plt Count MPV Neut % (Auto) Lymph % (Auto) Campbell % (Auto) Eos % (Auto) Baso % (Auto) Nucleat RBC Rel Count Absolute Neuts (auto) Absolute Lymphs (auto) Absolute Monos (auto) Absolute Eos (auto) Absolute Basos (auto) Absolute Nucleated RBC Immature Gran % Immature Gran # Platelet Estimate Polychromasia Hypochromasia Microcytic Cells Schistocytes Smear Review By Sodium 140 mEq/L mEq/L (135-145) Potassium 4.4 mEq/L mEq/L (3.5-5.2) Chloride 106 mEq/L mEq/L (97-110) Carbon Dioxide 24 mEq/l mEq/l (22-31) Anion Gap 10 mEq/L mEq/L (6-14) BUN 25 mg/dL H mg/dL (7-23) Creatinine 0.8 mg/dL mg/dL (0.7-1.3) Estimated GFR > 60 Glucose 107 mg/dL H mg/dL (70-100) Calcium 9.2 mg/dL mg/dL (8.5-10.4) Total Bilirubin 0.2 mg/dL mg/dL (0.1-1.4) Conjugated Bilirubin 0.2 mg/dL mg/dL (0.0-0.5) Unconjugated Bilirubin 0.0 mg/dL mg/dL (0.0-1.1) AST 17 IU/L IU/L (17-59) ALT 26 IU/L IU/L (21-72) Alkaline Phosphatase 77 IU/L IU/L (38-126) Total Protein 6.7 g/dL g/dL (6.3-8.2) Albumin 3.9 g/dL g/dL (3.5-5.0) Lipase 59 IU/L IU/L (23-300) Urine Color YELLOW Urine Appearance CLEAR Urine pH 5.0 (5.0-7.5) Ur Specific [place] 1.023 (1.002-1.030) Urine Protein NEGATIVE (NEGATIVE) Urine Ketones TRACE H (NEGATIVE) Urine Blood NEGATIVE (NEGATIVE) Urine Nitrate NEGATIVE (NEGATIVE) Urine Bilirubin NEGATIVE (NEGATIVE) Urine Urobilinogen 2.0 EU H EU (0.2-1.0) Ur Leukocyte Esterase TRACE H (NEGATIVE) Urine RBC NONE SEEN /hpf /hpf (0-3) Urine WBC 1-3 /hpf /hpf (0-3) Ur Epithelial Cells NONE SEEN /lpf /lpf (NONE-1+) Hyaline Casts 1-5 /lpf /lpf (0-1) Urine Mucus 1+ /lpf /lpf (NONE-1+) Urine Glucose NEGATIVE (NEGATIVE) Stool Occult Bld Scrn NEGATIVE (NEGATIVE) 07/26/18 11:50 WBC 5.65 10^3/uL 10^3/uL (3.80-9.50) RBC 3.28 10^6/uL L 10^6/uL (4.40-6.38) Hgb 5.8 g/dL L* g/dL (13.7-17.5) Hct 21.2 % L % (40.0-51.0) MCV 64.6 fL L fL (81.5-99.8) MCH 17.7 pg L pg (27.9-34.1) MCHC 27.4 g/dL L g/dL (32.4-36.7) RDW 24.6 % H % (11.5-15.2) Plt Count 323 10^3/uL 10^3/uL (150-400) MPV 9.2 fL fL (8.7-11.7) Neut % (Auto) 70.8 % % (39.3-74.2) Lymph % (Auto) 16.3 % % (15.0-45.0) Campbell % (Auto) 11.3 % % (4.5-13.0) Eos % (Auto) 0.9 % % (0.6-7.6) Baso % (Auto) 0.5 % % (0.3-1.7) Nucleat RBC Rel Count 0.0 % % (0.0-0.2) Absolute Neuts (auto) 4.00 10^3/uL 10^3/uL (1.70-6.50) Absolute Lymphs (auto) 0.92 10^3/uL L 10^3/uL (1.00-3.00) Absolute Monos (auto) 0.64 10^3/uL 10^3/uL (0.30-0.80) Absolute Eos (auto) 0.05 10^3/uL 10^3/uL (0.03-0.40) Absolute Basos (auto) 0.03 10^3/uL 10^3/uL (0.02-0.10) Absolute Nucleated RBC 0.00 10^3/uL 10^3/uL (0-0.01) Immature Gran % 0.2 % % (0.0-1.1) Immature Gran # 0.01 10^3/uL 10^3/uL (0.00-0.10) Platelet Estimate ADEQUATE (ADEQ) Polychromasia 1+ H Hypochromasia 3+ H Microcytic Cells 2+ H Schistocytes 1+ H Smear Review By Pending Sodium Potassium Chloride Carbon Dioxide Anion Gap BUN Creatinine Estimated GFR Glucose Calcium Total Bilirubin Conjugated Bilirubin Unconjugated Bilirubin AST ALT Alkaline Phosphatase Total Protein Albumin Lipase Urine Color Urine Appearance Urine pH Ur Specific [place] Urine Protein Urine Ketones Urine Blood Urine Nitrate Urine Bilirubin Urine Urobilinogen Ur Leukocyte Esterase Urine RBC Urine WBC Ur Epithelial Cells Hyaline Casts Urine Mucus Urine Glucose Stool Occult Bld Scrn Departure - Departure Disposition: [facility] Inpatient Acute Clinical Impression: Microcytic anemia, NSAID long-term use, GI bleed due to NSAIDs, Constipation by delayed colonic transit Condition: Fair
[2018-07-26 12:25] LABS: PLATELET COUNT 323 10^3/uL (150-400)
[2018-07-26] MEDS ORDERED: IOPAMIDOL (ISOVUE-300) 100 ML BTL ONE ×2 (12:56→13:15)
[2018-07-26] MEDS ORDERED: ACETAMINOPHEN 325 MG TAB PO PRN (15:14)
[2018-07-26] MEDS ORDERED: ONDANSETRON 4 MG/2 ML VIAL IVP PRN (15:14)
[2018-07-26] MEDS ORDERED: ONDANSETRON DISINTEGRATING 4 MG TAB PO PRN (15:14)
[2018-07-26] MEDS ORDERED: CYCLOBENZAPRINE 10 MG TAB PO PRN (15:38)
[2018-07-26] MEDS ORDERED: hydrOXYzine HCL 50 MG TAB PO PRN (15:38)
[2018-07-26] MEDS ORDERED: ALBUTEROL 60 PUFFS/8 GM MDI IH PRN (15:38)
--- NOTE | 2018-07-26 15:47 | PDGENHP ---
Addendum entered and electronically signed by Jennifer Holguin NP 07/26/18 16:59 : Correction: Pt disposition will be observation for the time being. Original Note: <Jennifer Holguin - Last Filed: 07/26/18 16:18> History and Physical - Chief Complaint Microcytic anemia, lower abdominal pain - History of Present Illness 58 y/o male w/hx of schizoaffective disorder presents w/ 4-7 days worth of lower abdominal pain and microcytic anemia. Apparently, his case finisher became concerned w/previous lab work which revealed low RBC count. He is homeless and resides at the [facility]. He reports his diffused abdominal pain, non-radiating. He denies any changes in his appetite, hematuria, hematochezia, melena, dysuria. No CP, palpitations, SOB, fever or chills. H/H is 5.8/21.2, stool occult negative, abdominal CT revealing no evidence of appendicitis, diverticulitis, abscess or bowel obstruction, noted constipation however reports having a normal BM today. He is being admitted for further testing and monitoring. History Information - Allergies/Home Medication List Allergies/Adverse Reactions: No Known Allergies Allergy (Verified 07/26/18 13:27) Home Medications: Hydroxyzine Pamoate [Vistaril] 50 mg PO BID PRN 04/30/18 [Last Taken 07/25/18 21 :00] Sertraline HCl [Zoloft 100mg (*)] 200 mg PO HS 04/30/18 [Last Taken 07/25/18] Acetaminophen [Tylenol ES 500 mg (*)] 500 - 1,000 mg PO Q6 PRN 07/26/18 [Last Taken Unknown] Albuterol [Proventil Inhaler HFA (*)] 1 - 2 puffs IH Q4H PRN 07/26/18 [Last Taken Unknown] Cyclobenzaprine [Flexeril 10 MG (*)] 5 mg PO BID PRN 07/26/18 [Last Taken Unknown] Meloxicam 7.5 mg PO BID PRN 07/26/18 [Last Taken 07/26/18] Naproxen Sodium [Aleve 220 MG (*)] 220 mg PO BID PRN 07/26/18 [Last Taken Unknown] OLANZapine [Zyprexa] 5 mg PO HS 07/26/18 [Last Taken 07/25/18] OLANZapine [Zyprexa] 20 mg PO HS 07/26/18 [Last Taken 07/25/18] traZODone [traZODONE 50MG (*)] 50 - 100 mg PO HS 07/26/18 [Last Taken 07/25/18 100mg] I have personally reviewed and updated: family history, medical history, social history, surgical history - Past Medical History Additional medical history: Schizoaffective disorder - Surgical History Reports: no pertinent surgical hx - Family History Positive for: non-pertinent - Social History Smoking Status: Heavy smoker (Approximately 5-10 cigarettes a day) Tobacco Use: Cigarettes Alcohol Use: Sober Drug Use: None Additional social history: Homeless Review of Systems Review of Systems: ROS: 10pt was reviewed & negative except for what was stated in HPI & below Physical Exam Physical Exam: Lab data and imaging were reviewed. H/H: 5.8/21.2 BUN/Cr: 25/0.8 UA: Negative Stool occult: negative Abdominal CT: see HPI Temp Pulse Resp BP Pulse Ox 36.4 C 94 18 134/80 H 91 L 07/26/18 15:20 07/26/18 15:20 07/26/18 15:20 07/26/18 15:20 07/26/18 15:20 Constitutional: appears nourished, uncomfortable, other (Pale in appearance) Eyes: PERRL, anicteric sclera, EOMI Ears, Nose, Mouth, Throat: hearing normal, ears appear normal, no oral mucosal ulcers, poor dentition Cardiovascular: regular rate and rhythym, no murmur, rub, or gallop, No edema Peripheral Pulses: 2+: dorsalis-pedis (R), dorsalis-pedis (L) Respiratory: no respiratory distress, no rales or rhonchi, clear to auscultation Gastrointestinal: no palpable masses, tenderness, guarding Genitourinary: no bladder fullness, no bladder tenderness Skin: warm, normal color, no rashes or abrasions, no fluctuance, no induration, No mottled Musculoskeletal: full muscle strength, no muscle tenderness, normal joint ROM, no joint effusions Neurologic: AAOx3, sensation intact bilaterally, CN II-XII Intact Psychiatric: interacting appropriately, not anxious, not encephalopathic, thought process linear Lymph, Heme, Immunologic: no cervical LAD, no supraclavicular LAD Lab Data & Imaging Review 07/26/18 11:50 07/26/18 11:50 WBC 5.65 10^3/uL (3.80-9.50) 07/26/18 11:50 RBC 3.28 10^6/uL (4.40-6.38) L 07/26/18 11:50 Hgb 5.8 g/dL (13.7-17.5) L* 07/26/18 11:50 Hct 21.2 % (40.0-51.0) L 07/26/18 11:50 MCV 64.6 fL (81.5-99.8) L 07/26/18 11:50 MCH 17.7 pg (27.9-34.1) L 07/26/18 11:50 MCHC 27.4 g/dL (32.4-36.7) L 07/26/18 11:50 RDW 24.6 % (11.5-15.2) H 07/26/18 11:50 Plt Count 323 10^3/uL (150-400) 07/26/18 11:50 MPV 9.2 fL (8.7-11.7) 07/26/18 11:50 Neut % (Auto) 70.8 % (39.3-74.2) 07/26/18 11:50 Lymph % (Auto) 16.3 % (15.0-45.0) 07/26/18 11:50 Winkler % (Auto) 11.3 % (4.5-13.0) 07/26/18 11:50 Eos % (Auto) 0.9 % (0.6-7.6) 07/26/18 11:50 Baso % (Auto) 0.5 % (0.3-1.7) 07/26/18 11:50 Nucleat RBC Rel Count 0.0 % (0.0-0.2) 07/26/18 11:50 Absolute Neuts (auto) 4.00 10^3/uL (1.70-6.50) 07/26/18 11:50 Absolute Lymphs (auto) 0.92 10^3/uL (1.00-3.00) L 07/26/18 11:50 Absolute Monos (auto) 0.64 10^3/uL (0.30-0.80) 07/26/18 11:50 Absolute Eos (auto) 0.05 10^3/uL (0.03-0.40) 07/26/18 11:50 Absolute Basos (auto) 0.03 10^3/uL (0.02-0.10) 07/26/18 11:50 Absolute Nucleated RBC 0.00 10^3/uL (0-0.01) 07/26/18 11:50 Immature Gran % 0.2 % (0.0-1.1) 07/26/18 11:50 Immature Gran # 0.01 10^3/uL (0.00-0.10) 07/26/18 11:50 Platelet Estimate ADEQUATE (ADEQ) 07/26/18 11:50 Polychromasia 1+ H 07/26/18 11:50 Hypochromasia 3+ H 07/26/18 11:50 Microcytic Cells 2+ H 07/26/18 11:50 Schistocytes 1+ H 07/26/18 11:50 Sodium 140 mEq/L (135-145) 07/26/18 11:50 Potassium 4.4 mEq/L (3.5-5.2) 07/26/18 11:50 Chloride 106 mEq/L (97-110) 07/26/18 11:50 Carbon Dioxide 24 mEq/l (22-31) 07/26/18 11:50 Anion Gap 10 mEq/L (6-14) 07/26/18 11:50 BUN 25 mg/dL (7-23) H 07/26/18 11:50 Creatinine 0.8 mg/dL (0.7-1.3) 07/26/18 11:50 Estimated GFR > 60 07/26/18 11:50 Glucose 107 mg/dL (70-100) H 07/26/18 11:50 Calcium 9.2 mg/dL (8.5-10.4) 07/26/18 11:50 Total Bilirubin 0.2 mg/dL (0.1-1.4) 07/26/18 11:50 Conjugated Bilirubin 0.2 mg/dL (0.0-0.5) 07/26/18 11:50 Unconjugated Bilirubin 0.0 mg/dL (0.0-1.1) 07/26/18 11:50 AST 17 IU/L (17-59) 07/26/18 11:50 ALT 26 IU/L (21-72) 07/26/18 11:50 Alkaline Phosphatase 77 IU/L (38-126) 07/26/18 11:50 Total Protein 6.7 g/dL (6.3-8.2) 07/26/18 11:50 Albumin 3.9 g/dL (3.5-5.0) 07/26/18 11:50 Lipase 59 IU/L (23-300) 07/26/18 11:50 Urine Color YELLOW 07/26/18 12:45 Urine Appearance CLEAR 07/26/18 12:45 Urine pH 5.0 (5.0-7.5) 07/26/18 12:45 Ur Specific Mercer 1.023 (1.002-1.030) 07/26/18 12:45 Urine Protein NEGATIVE (NEGATIVE) 07/26/18 12:45 Urine Ketones TRACE (NEGATIVE) H 07/26/18 12:45 Urine Blood NEGATIVE (NEGATIVE) 07/26/18 12:45 Urine Nitrate NEGATIVE (NEGATIVE) 07/26/18 12:45 Urine Bilirubin NEGATIVE (NEGATIVE) 07/26/18 12:45 Urine Urobilinogen 2.0 EU (0.2-1.0) H 07/26/18 12:45 Ur Leukocyte Esterase TRACE (NEGATIVE) H 07/26/18 12:45 Urine RBC NONE SEEN /hpf (0-3) 07/26/18 12:45 Urine WBC 1-3 /hpf (0-3) 07/26/18 12:45 Ur Epithelial Cells NONE SEEN /lpf (NONE-1+) 07/26/18 12:45 Hyaline Casts 1-5 /lpf (0-1) 07/26/18 12:45 Urine Mucus 1+ /lpf (NONE-1+) 07/26/18 12:45 Urine Glucose NEGATIVE (NEGATIVE) 07/26/18 12:45 Stool Occult Bld Scrn NEGATIVE (NEGATIVE) 07/26/18 12:35 Patient ABO/Rh O POSITIVE 07/26/18 11:50 Antibody Screen NEGATIVE 07/26/18 11:50 Crossmatch IS Only See Detail 07/26/18 11:50 Assessment & Plan Plan: This is a 58 y/o transient male w/hx of schizoaffective disorder presenting w/4- 7 days worth of abdominal pain, subsequently w/ microcytic anemia. He denies any blood loss via vomiting, stool, or urine and reportedly takes NSAIDs on a regular basis for pain relief. He is unsure exactly how much he takes of NSAIDs. He is hemodynamically stable w/vitals BP 128/80, HR 89, Resp 18, Temp 36.8c, 98%RA. #Microcytic anemia 2/2 suspected GI bleed due to NSAIDs -Stool occult negative -GI consulted. Dr. Rowland to evaluate pt tomorrow with the possibility of scoping on Thursday hence pt will be NPO beginning midnight Thursday. Pt cannot remember when his last colonoscopy was but stated it was "botched," however could not give any further information. -Transfusing 2 units of RBCs; will recheck H/H tonight -Iron panel pending -Holding NSAIDs #Abdominal pain 2/2 suspected GI bleed and possible ulcers d/t NSAIDS and/or tobacco use -Anti-emetics/pain management PO/IVP PRN -Protonix IVP BID -Holding NSAIDs #Constipation -Holding his Imodium -Initiated bowel regimen #Schizoaffective disorder: cont Zyprexa and Zoloft #Tobacco cessation: Educated pt on the negative effects of smoking cigarettes. He is not willing to quit at the moment. -Nicoderm patch Diet: Regular VTE ppx: SCDs Code: Full Dispo: Admit to inpatient <Norma Witt - Last Filed: 07/26/18 18:40> History and Physical - History of Present Illness Review of Systems Review of Systems: Physical Exam Physical Exam: Temp Pulse Resp BP Pulse Ox 36.4 C 94 18 134/80 H 91 L 07/26/18 15:20 07/26/18 15:20 07/26/18 15:20 07/26/18 15:20 07/26/18 15:20 Lab Data & Imaging Review 07/26/18 11:50 07/26/18 11:50 WBC 5.65 10^3/uL (3.80-9.50) 07/26/18 11:50 RBC 3.28 10^6/uL (4.40-6.38) L 07/26/18 11:50 Hgb 5.8 g/dL (13.7-17.5) L* 07/26/18 11:50 Hct 21.2 % (40.0-51.0) L 07/26/18 11:50 MCV 64.6 fL (81.5-99.8) L 07/26/18 11:50 MCH 17.7 pg (27.9-34.1) L 07/26/18 11:50 MCHC 27.4 g/dL (32.4-36.7) L 07/26/18 11:50 RDW 24.6 % (11.5-15.2) H 07/26/18 11:50 Plt Count 323 10^3/uL (150-400) 07/26/18 11:50 MPV 9.2 fL (8.7-11.7) 07/26/18 11:50 Neut % (Auto) 70.8 % (39.3-74.2) 07/26/18 11:50 Lymph % (Auto) 16.3 % (15.0-45.0) 07/26/18 11:50 Winkler % (Auto) 11.3 % (4.5-13.0) 07/26/18 11:50 Eos % (Auto) 0.9 % (0.6-7.6) 07/26/18 11:50 Baso % (Auto) 0.5 % (0.3-1.7) 07/26/18 11:50 Nucleat RBC Rel Count 0.0 % (0.0-0.2) 07/26/18 11:50 Absolute Neuts (auto) 4.00 10^3/uL (1.70-6.50) 07/26/18 11:50 Absolute Lymphs (auto) 0.92 10^3/uL (1.00-3.00) L 07/26/18 11:50 Absolute Monos (auto) 0.64 10^3/uL (0.30-0.80) 07/26/18 11:50 Absolute Eos (auto) 0.05 10^3/uL (0.03-0.40) 07/26/18 11:50 Absolute Basos (auto) 0.03 10^3/uL (0.02-0.10) 07/26/18 11:50 Absolute Nucleated RBC 0.00 10^3/uL (0-0.01) 07/26/18 11:50 Immature Gran % 0.2 % (0.0-1.1) 07/26/18 11:50 Immature Gran # 0.01 10^3/uL (0.00-0.10) 07/26/18 11:50 Platelet Estimate ADEQUATE (ADEQ) 07/26/18 11:50 Polychromasia 1+ H 07/26/18 11:50 Hypochromasia 3+ H 07/26/18 11:50 Microcytic Cells 2+ H 07/26/18 11:50 Schistocytes 1+ H 07/26/18 11:50 Smear Review By Wali URBINA MD 07/26/18 11:50 PT 13.0 SEC (12.0-15.0) 07/26/18 11:50 INR 1.02 (0.83-1.16) 07/26/18 11:50 Sodium 140 mEq/L (135-145) 07/26/18 11:50 Potassium 4.4 mEq/L (3.5-5.2) 07/26/18 11:50 Chloride 106 mEq/L (97-110) 07/26/18 11:50 Carbon Dioxide 24 mEq/l (22-31) 07/26/18 11:50 Anion Gap 10 mEq/L (6-14) 07/26/18 11:50 BUN 25 mg/dL (7-23) H 07/26/18 11:50 Creatinine 0.8 mg/dL (0.7-1.3) 07/26/18 11:50 Estimated GFR > 60 07/26/18 11:50 Glucose 107 mg/dL (70-100) H 07/26/18 11:50 Calcium 9.2 mg/dL (8.5-10.4) 07/26/18 11:50 Iron 11.0 mcg/dL (49.0-199.0) L 07/26/18 11:50 TIBC 456 ug/dL (260-490) 07/26/18 11:50 Iron Saturation 2 % (20-55) L 07/26/18 11:50 Total Bilirubin 0.2 mg/dL (0.1-1.4) 07/26/18 11:50 Conjugated Bilirubin 0.2 mg/dL (0.0-0.5) 07/26/18 11:50 Unconjugated Bilirubin 0.0 mg/dL (0.0-1.1) 07/26/18 11:50 AST 17 IU/L (17-59) 07/26/18 11:50 ALT 26 IU/L (21-72) 07/26/18 11:50 Alkaline Phosphatase 77 IU/L (38-126) 07/26/18 11:50 Total Protein 6.7 g/dL (6.3-8.2) 07/26/18 11:50 Albumin 3.9 g/dL (3.5-5.0) 07/26/18 11:50 Lipase 59 IU/L (23-300) 07/26/18 11:50 Urine Color YELLOW 07/26/18 12:45 Urine Appearance CLEAR 07/26/18 12:45 Urine pH 5.0 (5.0-7.5) 07/26/18 12:45 Ur Specific Mercer 1.023 (1.002-1.030) 07/26/18 12:45 Urine Protein NEGATIVE (NEGATIVE) 07/26/18 12:45 Urine Ketones TRACE (NEGATIVE) H 07/26/18 12:45 Urine Blood NEGATIVE (NEGATIVE) 07/26/18 12:45 Urine Nitrate NEGATIVE (NEGATIVE) 07/26/18 12:45 Urine Bilirubin NEGATIVE (NEGATIVE) 07/26/18 12:45 Urine Urobilinogen 2.0 EU (0.2-1.0) H 07/26/18 12:45 Ur Leukocyte Esterase TRACE (NEGATIVE) H 07/26/18 12:45 Urine RBC NONE SEEN /hpf (0-3) 07/26/18 12:45 Urine WBC 1-3 /hpf (0-3) 07/26/18 12:45 Ur Epithelial Cells NONE SEEN /lpf (NONE-1+) 07/26/18 12:45 Hyaline Casts 1-5 /lpf (0-1) 07/26/18 12:45 Urine Mucus 1+ /lpf (NONE-1+) 07/26/18 12:45 Urine Glucose NEGATIVE (NEGATIVE) 07/26/18 12:45 Stool Occult Bld Scrn NEGATIVE (NEGATIVE) 07/26/18 12:35 Patient ABO/Rh O POSITIVE 07/26/18 11:50 Antibody Screen NEGATIVE 07/26/18 11:50 Crossmatch IS Only See Detail 07/26/18 11:50 Assessment & Plan Assessment: Constipation by delayed colonic transit (Acute) GI bleed due to NSAIDs (Acute) Microcytic anemia (Acute) NSAID long-term use (Acute) Plan: Patient seen and evaluated independently and care plan reviewed with ANTONIO Holguin, please see separate documentation for further evaluation, agree with her assessment and plan as above.
[2018-07-26] MEDS ORDERED: LACTULOSE 20 GM/30 ML UDCUP PO PRN (15:48)
[2018-07-26] MEDS ORDERED: POLYETHYLENE GLYCOL 3350 17 GM PKT PO PRN (15:48)
[2018-07-26] MEDS ORDERED: BISACODYL 10 MG SUPP PR PRN (15:48)
[2018-07-26] MEDS ORDERED: MAGNESIUM HYDROXIDE 30 ML UDCUP PO PRN (15:48)
[2018-07-26] MEDS: NICOTINE 21 MG/24 HR PATCH TD SCH (15:53)
[2018-07-26] MEDS: PANTOPRAZOLE SODIUM 40 MG VIAL IVP SCH ×2 (15:53→21:44)
[2018-07-26 16:24] LABS: INR 1.02 (0.83-1.16)
--- NOTE | 2018-07-26 18:48 | HOSPPROG ---
Hospitalist Progress Note Assessment/Plan: 58 yo M with hx of SzAD, bipolar type, as well as PTSD and COPD presenting to ER after being found on routine labs to be severely anemic # anemia: without complaints or symptoms suggestive of GI bleed other than abdominal pain, he does admit to taking fairly large doses of NSAIDS (meloxicam and naproxen). Will admit and monitor h/h overnight, GI has been consulted, they plan to scope later in the week, continue IV PPI. Tx for h/h <7/21. # abdominal pain: CT scan personally reviewed, revealing constipation but no other concerning findings, start bowel protocol # Szad: continue home medications, currently relatively well controlled # COPD: without e/o acute exacerbation, prn BDs # nicotine dependence: nicotine patch # observation status Patient new to my care. Old records reviewed/summarized as above. Care plan reviewed with ER doctor, ANTONIO Holguin, please see her separate H&P for further details. Objective: Vital Signs Temp Pulse Resp BP Pulse Ox 36.4 C 94 18 134/80 H 91 L 07/26/18 15:20 07/26/18 15:20 07/26/18 15:20 07/26/18 15:20 07/26/18 15:20 07/25/18 07/26/18 07/27/18 05:59 05:59 05:59 Output Total 475 Balance -475 PT 13.0 SEC (12.0-15.0) 07/26/18 11:50 INR 1.02 (0.83-1.16) 07/26/18 11:50 ICD10 Worksheet Patient Problems: Problems Problem Status Onset Microcytic anemia Acute NSAID long-term use Acute GI bleed due to NSAIDs Acute Constipation by delayed colonic transit Acute Nicotine dependence with withdrawal Acute Amphetamine abuse in remission Acute PTSD (post-traumatic stress disorder) Chronic Unspecified psychosis Acute
[2018-07-26] MEDS: traZODone 50 MG TAB PO SCH (21:44)
[2018-07-26] MEDS: OLANZapine 5 MG TAB PO SCH (21:45)
[2018-07-26] MEDS: OLANZapine 10 MG TAB PO SCH (21:45)
[2018-07-26] MEDS: SENNOSIDES/DOCUSATE SODIUM TAB PO SCH (21:45)
[2018-07-26] MEDS: SERTRALINE HCL 100 MG TAB PO SCH (21:45)
[2018-07-27 04:28] LABS: PLATELET COUNT 318 10^3/uL (150-400)
[2018-07-27] MEDS: NICOTINE 21 MG/24 HR PATCH TD SCH (08:30)
[2018-07-27] MEDS: PANTOPRAZOLE SODIUM 40 MG VIAL IVP SCH ×2 (08:30→20:57)
[2018-07-27] MEDS: SENNOSIDES/DOCUSATE SODIUM TAB PO SCH ×2 (09:06→20:57)
[2018-07-27] MEDS ORDERED: MAGNESIUM CITRATE 300 ML BOTTLE PO ONE (13:00)
--- NOTE | 2018-07-27 13:21 | GCON ---
[f rep st] CONSULTATION DATE OF CONSULTATION: 07/27/2018 REFERRING PROVIDER: Norma Witt M.D. REASON FOR CONSULT: Iron deficiency anemia. Dear Dr. Witt: Thank you very kindly for asking me to evaluate Mr. Paz in consultation for a chief complaint of a new onset microcytic anemia felt to be iron deficient. He is a pleasant 58-year-old gentleman with schizoaffective disorder, who came to the hospital describing lower abdominal pain and was noted to b e anemic with a hematocrit of 21.2. Stool for occult blood was negative. A CT scan of the abdomen a nd pelvis was unremarkable. Sikh denies any diarrhea, hematochezia, melena, change in bowel hab its or constipation. He does describe lower abdominal discomfort that has been present for several m onths and not really any worse. He has had a colonoscopy about 10 years ago, but it sounds like the bowel cleanse was somewhat inadequate and he says that they were not able to "give him any results." He is a homeless gentleman who resides at the [facility]. I am asked to assist with furt her evaluation and management. PAST MEDICAL HISTORY: Significant for schizoaffective disorder. PAST SURGICAL HISTORY: None. FAMILY HISTORY: Negative for colon cancer. MEDICATIONS: On admission include Vistaril, Zoloft, Tylenol, Proventil, Flexeril, meloxicam, Aleve, Zyprexa, trazodone. ALLERGIES: None known. REVIEW OF SYSTEMS: A 10-point review of systems is otherwise non-pertinent other than what is in the HPI. SOCIAL HISTORY: The patient is a heavy tobacco user. He is homeless. He is single. PHYSICAL EXAM: VITAL SIGNS: Blood pressure 111/69 with a pulse of 91, temperature is 36.3, oxygenat ion is 93% on room air. GENERAL: No acute distress. HEENT: Normocephalic, atraumatic. NECK: Sup ple. PULMONARY: Clear to auscultation bilaterally. CARDIOVASCULAR: Regular rate and rhythm withou t murmur, rub, or gallop. GI: Scaphoid abdomen without tenderness, rebound, guarding or palpable ma ss. Bowel sounds are normal. MUSCULOSKELETAL: No cyanosis, clubbing, or edema. Normal gait and st ation. DERMATOLOGIC: No jaundice or petechiae. NEURO: Alert to person, place, and time. Mildly anxious-appearing. Does have pressured speech. No nfocal motor exam. Gait not ataxic. LABORATORY DATA: Database includes the following: White blood count is 4.8, hematocrit is 21.2, blanche telets are 323, MCV is 64. Transfusion was provided with an improvement in his hematocrit to 27. IN R is 1.02. BUN is 18 with a creatinine of 0.9. Electrolytes are otherwise normal. LFTs are normal. Lipase is 59. Imaging includes a CT scan of the abdomen and pelvis on July 26, 2018, performed for lower abdominal pain, shows evidence of constipation. No other acute abnormality. IMPRESSION: 1. Iron deficiency anemia. 2. Lower abdominal pain. 3. Radiographic evidence of constipation. 4. Schizoaffective disorder. 5. Tobacco abuse. RECOMMENDATIONS: 1. Upper endoscopy as he has been on Aleve and meloxicam to help exclude peptic ulcer disease as a c ause of anemia. Random duodenal biopsies will be taken. 2. Colonoscopy to evaluate his lower abdominal pain and iron-deficiency anemia. 3. Gallon of Golytely with mag citrate in split fashion. 10 mg of bisacodyl will be given for the p rocedure. 4. Anesthesia consultation due to his schizoaffective disorder. He will not be a candidate for cons cious sedation and will require propofol. 5. I do not believe he needs any additional transfusion, but check a.m. CBC. 6. Further recommendations pended upon his endoscopy and colonoscopy findings. /[id number]/MODL
--- NOTE | 2018-07-27 13:35 | HOSPPROG ---
Hospitalist Progress Note Assessment/Plan: 58 yo M with hx of SzAD, bipolar type, as well as PTSD and COPD presenting to ER after being found on routine labs to be severely anemic. First encounter, chart reviewed. D/W Dr Rowland. # anemia: -asymptomatic -without complaints or symptoms suggestive of GI bleed -mild abdominal pain -EGD in am -he does admit to taking fairly large doses of NSAIDS (meloxicam and naproxen ). -monitor h/h overnight -GI consult -continue IV PPI -Tx for h/h <7 # abdominal pain: -CT scan revealing constipation -start bowel protocol # Szad: -continue home medications -currently relatively well controlled # COPD: -without e/o acute exacerbation, prn BDs # nicotine dependence: -nicotine patch # Dispo -change to inpt status -pt requires bowel prep and further workup Subjective: Feeling ok. No specific issues. Objective: Vital Signs Temp Pulse Resp BP Pulse Ox 36.3 C 91 16 111/69 90 L 07/27/18 10:56 07/27/18 11:56 07/27/18 11:56 07/27/18 10:56 07/27/18 11:56 Laboratory Results 07/27/18 04:04 07/27/18 04:04 07/26/18 07/27/18 07/28/18 05:59 05:59 05:59 Output Total 475 550 Balance -475 -550 PT 13.0 SEC (12.0-15.0) 07/26/18 11:50 INR 1.02 (0.83-1.16) 07/26/18 11:50 - Physical Exam Constitutional: no apparent distress, unkempt, cachectic Eyes: PERRL, anicteric sclera, EOMI Ears, Nose, Mouth, Throat: moist mucous membranes, hearing normal, poor dentition Cardiovascular: regular rate and rhythym, No JVD, No edema Respiratory: no respiratory distress, no rales or rhonchi, reduced air movement Gastrointestinal: normoactive bowel sounds, No tenderness, No ascites Skin: warm, normal color, No mottled Musculoskeletal: normal joint ROM, no joint effusions, generalized weakness Neurologic: AAOx3 Psychiatric: not anxious, not encephalopathic, thought process linear ICD10 Worksheet Patient Problems: Problems Problem Status Onset Microcytic anemia Acute NSAID long-term use Acute GI bleed due to NSAIDs Acute Constipation by delayed colonic transit Acute Nicotine dependence with withdrawal Acute Amphetamine abuse in remission Acute PTSD (post-traumatic stress disorder) Chronic Unspecified psychosis Acute
--- NOTE | 2018-07-27 14:42 | PDMN ---
Medical Necessity Medical necessity: Change to IP, as of 07/27/18, per TRAINING PROJECT MANAGER & MCG M-35; los >2 mn for ongoing management of iron deficiency anemia w/lower abdominal pain; requiring endoscopy/colonoscopy, IV PPI & follow-up labs
[2018-07-27] MEDS ORDERED: PEG 3350/NA SULF,BICARB,CL/KCL (GAVILYTE-G) 4000 ML BTL PO ONE (18:00)
[2018-07-27] MEDS: OLANZapine 10 MG TAB PO SCH (20:57)
[2018-07-27] MEDS: NICOTINE POLACRILEX 2 MG GUM B PRN (20:57)
[2018-07-27] MEDS: OLANZapine 5 MG TAB PO SCH (20:57)
[2018-07-27] MEDS: SERTRALINE HCL 100 MG TAB PO SCH (20:57)
[2018-07-28] MEDS: traZODone 50 MG TAB PO SCH (00:49)
[2018-07-28] MEDS: SENNOSIDES/DOCUSATE SODIUM TAB PO SCH (07:42)
[2018-07-28] MEDS: NICOTINE 21 MG/24 HR PATCH TD SCH (08:00)
[2018-07-28] MEDS: PANTOPRAZOLE SODIUM 40 MG VIAL IVP SCH (08:00)
[2018-07-28] MEDS ORDERED: LR 1,000 ML IV ONE (08:00)
--- NOTE | 2018-07-28 08:54 | PDANEPAE ---
ANE History of Present Illness EGD colonoscopy ANE Past Medical History - Pulmonary History Hx Oxygen in Use at Home: No Hx Sleep Apnea: No Sleep Apnea Screening Result - Last Documented: Negative - Endocrine History Hx Diabetes: No - Neurological & Psychiatric Hx Hx Neurological and Psychiatric Disorders: Yes - GI History Hx Gastrointestinal Disorders: Yes Gastrointestinal History Comment: severe anemia - Chronic Pain History Chronic Pain: No ANE Review of Systems Review of systems is: negative Review of Systems: - Exercise capacity Exercise capacity: >=4 METS ANE Patient History - Allergies Allergies/Adverse Reactions: No Known Allergies Allergy (Verified 07/26/18 13:27) - Home Medications Home medications: home medication list seen and reviewed Home Medications: Hydroxyzine Pamoate [Vistaril] 50 mg PO BID PRN 04/30/18 [Last Taken 07/25/18 21 :00] Sertraline HCl [Zoloft 100mg (*)] 200 mg PO HS 04/30/18 [Last Taken 07/25/18] Acetaminophen [Tylenol ES 500 mg (*)] 500 - 1,000 mg PO Q6 PRN 07/26/18 [Last Taken Unknown] Albuterol [Proventil Inhaler HFA (*)] 1 - 2 puffs IH Q4H PRN 07/26/18 [Last Taken Unknown] Cyclobenzaprine [Flexeril 10 MG (*)] 5 mg PO BID PRN 07/26/18 [Last Taken Unknown] Meloxicam 7.5 mg PO BID PRN 07/26/18 [Last Taken 07/26/18] Naproxen Sodium [Aleve 220 MG (*)] 220 mg PO BID PRN 07/26/18 [Last Taken Unknown] OLANZapine [Zyprexa] 5 mg PO HS 07/26/18 [Last Taken 07/25/18] OLANZapine [Zyprexa] 20 mg PO HS 07/26/18 [Last Taken 07/25/18] traZODone [traZODONE 50MG (*)] 50 - 100 mg PO HS 07/26/18 [Last Taken 07/25/18 100mg] - NPO status NPO Status: no food or drink >8 hours NPO Since - Liquids (Date): 07/28/18 NPO Since - Liquids (Time): 00:01 NPO Since - Solids (Date): 04/10/19 NPO Since - Solids (Time): 00:01 - Anes Hx Anes Hx: no prior problems - Smoking Hx Smoking Status: Heavy smoker (Approximately 5-10 cigarettes a day) - Alcohol Use Alcohol Use: Sober - Family Anes Hx Family Anes Hx: none ANE Labs/Vital Signs - Labs Result Diagrams: 07/28/18 04:34 07/27/18 04:04 - Vital Signs Vital Signs: reviewed preoperatively; see RN documention for details Blood Pressure: 114/83 Heart Rate: 85 Respiratory Rate: 20 O2 Sat (%): 86 Height: 172.72 cm Weight: 70.307 kg ANE Physical Exam - Airway Mallampati Score: Class 1 Mouth exam: poor dentition - Pulmonary Pulmonary: no respiratory distress - Cardiovascular Cardiovascular: regular rate and rhythym - ASA Status ASA Status: III ANE Anesthesia Plan Total IV Anesthesia: Yes
[2018-07-28] MEDS ORDERED: NALOXONE HCL 0.4 MG/ML INJ IVP PRN (09:10)
[2018-07-28] MEDS ORDERED: ONDANSETRON 4 MG/2 ML VIAL IVP PRN (09:10)
[2018-07-28] MEDS ORDERED: fentaNYL 100 MCG/2 ML INJ IVP PRN (09:10)
[2018-07-28] MEDS ORDERED: ALBUTEROL 3 ML DEYVIAL IH PRN (09:10)
[2018-07-28] MEDS ORDERED: DEXAMETHASONE 4 MG/ML VIAL IVP PRN (09:10)
--- NOTE | 2018-07-28 09:10 | POSTANESTH ---
Post Anesthetic Evaluation Cardiovascular Status: Similar to Pre-Op Cond Respiratory Status: Similar to Pre-op Cond. Level of Consciousness/Mental Status: Can Participate in Eval, Mildly Sleepy, Arousable Pain Control: Adequate, Prn Tx Ordered Nausea/Vomiting Control: Adequate, Prn Tx Ordered Complications Possibly Related to Anesthesia: None Noted
[2018-07-28] MEDS ORDERED: LIDOCAINE 2% 100 MG/5 ML SYR ONE (09:12)
[2018-07-28] MEDS ORDERED: PROPOFOL/EMULSION 500 MG/50 ML BOTTLE IV ONE (09:12)
--- NOTE | 2018-07-28 09:38 | GIREPORT ---
[facility] Surgical Services - Endoscopy Department Patient Name: Gabe Paz Procedure Date: 07/28/2018 9:23 AM Patient Type: Inpatient Attending MD/ ER Physician: Yusef Rowland MD Procedure: Upper GI endoscopy Indications: Iron deficiency anemia Providers: Yusef Rowland MD Medicines: Propofol per Anesthesia Complications: No immediate complications. Description of Procedure: After obtaining informed consent, the endoscope was passed under direct vision. Throughout the procedure, the patient's blood pressure, pulse, and oxygen saturations were monitored continuously. The Endoscope was intro duced through the mouth, and advanced to the second part of duodenum. The [facility] er GI endoscopy was accomplished without difficulty. The patient tolerated th e procedure well. Findings: The esophagus was normal. The entire examined stomach was normal. Biopsies were taken with a cold forceps for histology. One non-bleeding cratered duodenal ulcer with no stigmata of bleeding w as found in the first portion of the duodenum. The lesion was 18 mm in lar gest dimension. Biopsies were taken with a cold forceps for histology. The duodenal bulb and second portion of the duodenum were normal. Estimated Blood Loss: Estimated blood loss: none. Post Op Diagnosis: - Normal esophagus. - Normal stomach. Biopsied. - One non-bleeding duodenal ulcer with no stigmata of bleeding. Biopsie d. - Normal duodenal bulb and second portion of the duodenum. - The duodenal ulcer is likely to be contributing and may be the sole c ause of TANJA (iron deficiency). Recommendation: - Await pathology results. - Treat H.pylori if found on histology - BID PPI therapy - Stop all NSAIDs and ASA which I feel is the cause of the ulcer - Daily iron supplement - Colonoscopy today. - Thank you for allowing me to be involved in the care of your patient. Attending Participation: I personally performed the entire procedure without the assistance of a fellow, resident or surg ical portfolio assistant. Yusef Rowland MD Yusef Rowland MD 07/28/2018 9:38:07 AM This report has been signed electronicallyDavid MD Janett Number of Addenda: 0 Note Initiated On: 07/28/2018 9:23 AM [email or web address]
--- NOTE | 2018-07-28 09:59 | GIREPORT ---
[facility] Surgical Services - Endoscopy Department Patient Name: Gabe Paz Procedure Date: 07/28/2018 9:34 AM Patient Type: Inpatient Attending MD/ ER Physician: Yusef Rowland MD Procedure: Colonoscopy Indications: Iron deficiency anemia Providers: Yusef Rowland MD Medicines: Propofol per Anesthesia Complications: No immediate complications. Description of Procedure: After obtaining informed consent, the scope was passed under direct vis ion. Throughout the procedure, the patient's blood pressure, pulse, and oxyg en saturations were monitored continuously. The Colonoscope with irrigatio n channel was introduced through the anus and advanced to the cecum, identified by appendiceal orifice and ileocecal valve. The colonoscopy was performed without difficulty. The patient tolerated the procedure well. The quality of the bowel preparation was excellent. The ileocecal valve, appendiceal orifice, and rectum were photographed. Findings: The digital rectal exam findings include non-thrombosed external hemorrhoids. Pertinent negatives include normal sphincter tone and no palpable rectal lesions. Multiple small and large-mouthed diverticula were found in the sigmoid colon. The exam was otherwise without abnormality. Estimated Blood Loss: Estimated blood loss: none. Post Op Diagnosis: - Non-thrombosed external hemorrhoids found on digital rectal exam. - Diverticulosis in the sigmoid colon. - The examination was otherwise normal. - No specimens collected. Recommendation: - Repeat colonoscopy in 10 years for screening purposes. - [facility] to [facility] for [facility] same day. - Advance diet as tolerated today. - Thank you for allowing me to be involved in the care of your patient. Attending Participation: I personally performed the entire procedure without the assistance of a fellow, resident or surg ical mri assistant. Yusef Rowland MD Yusef Rowland MD 07/28/2018 9:59:03 AM This report has been signed electronicallyDavid MD Janett Number of Addenda: 0 Note Initiated On: 07/28/2018 9:34 AM Total Procedure Duration Time 0 hours 12 minutes 2 seconds [email or web address]
[2018-07-28 10:57] VITALS: BP 124/84
[2018-07-28] MEDS: NICOTINE POLACRILEX 2 MG GUM B PRN (12:04)
--- NOTE | 2018-07-28 13:01 | ASMTCMCOM ---
CM Note CM Note Notes: Met with pt about discharge, he would like a ride to [facility] [place] ( [facility]) CM left for pt's CM at [facility]. Offered to cab pt to but states the [place] address is fine, he knows his way around. DC Plan: Independent Date Signed: 07/28/2018 01:01 PM Electronically Signed By:Maday Harrell RN
--- NOTE | 2018-07-28 13:05 | ASMTLACE ---
MARY Length of stay for Answers: 1 day current admission Acuity / Level of Answers: Yes Care: Did the patient have an inpatient admission? # of Emergency department Answers: 3-4 visits in the last 6 months Social determinants Answers: Homelessness (street, longterm) Mental health diagnosis (anxiety, depression, pers onality disorders, etc.) Score: 13 Date Signed: 07/28/2018 01:04 PM Electronically Signed By:Maday Harrell RN
--- NOTE | 2018-07-28 13:30 | GDS ---
[f rep st] DISCHARGE SUMMARY DISCHARGE DIAGNOSES: 1. Iron deficiency anemia. 2. Abdominal pain. 3. History of seizure disorder. 4. History of chronic obstructive pulmonary disease. CONSULTATION: Gastroenterology. STUDIES AND PROCEDURES DONE: 1. EGD. 2. Colonoscopy. PHYSICAL EXAM: GENERAL: The patient is alert. VITAL SIGNS: Afebrile at 36.9, pulse is 84, respira tory rate is 19. Blood pressure is 124/84, he is saturating 90% on room air. I have seen and evalua reinier the patient on the day of discharge. HOSPITAL COURSE: The patient is a 58-year-old male who presented to the emergency room with complain ts of abnormal labs and abdominal pain. He was evaluated and diagnosed with: 1. Iron deficiency anemia. During this hospitalization, he received a consultation from Gastroenter ology. An EGD as well as colonoscopy were performed, and the patient was noted to have a duodenal ul cer. This is in the setting of continued NSAID use. He did receive a transfusion of 2 units of pack ed red blood cells during this hospitalization. He has had no further signs of blood loss and his he moglobin and hematocrit have been stable. He has been recommended to refrain off any NSAIDs in the f uture and has been initiated on a proton pump inhibitor. 2. Abdominal pain. This has resolved. 3. Constipation. This has resolved with bowel protocol. 4. History of schizoaffective disorder. The patient has continued on his home medications. 5. History of COPD. This is stable. No acute exacerbations noted. DISPOSITION: He will be discharged home independently. Pending studies include biopsies that were zena peck during his EGD, as well as colonoscopy. DISCHARGE MEDICATIONS: Please refer to EMR form. I have provided the patient a prescription for Pro tonix 40 mg p.o. b.i.d. He is also recommended to refrain from any further NSAID use. FOLLOWUP: Will be with his primary care provider. I spent greater than 35 minutes in the care, coordination, and management of the patient's dispositio n. /[id number]/MODL
== END 2018-07-28 13:10 | disposition home or self-care (01) | DRG 812 ==
LOC: INTOOBSV 14:00 → F3E 14:37 → OBSVTOIN 07-27 13:41
PROVIDERS: ADMIT Internal Medicine; ATTEND Internal Medicine
DX: D50.8 Other iron deficiency anemias (principal); K26.3 Acute duodenal ulcer without hemorrhage or perforation; K57.30 Diverticulosis of large intestine without perforation or abscess without bleeding; K59.00 Constipation, unspecified; K64.4 Residual hemorrhoidal skin tags; G40.909 Epilepsy, unspecified, not intractable, without status epilepticus; J44.9 Chronic obstructive pulmonary disease, unspecified; F25.9 Schizoaffective disorder, unspecified; F17.200 Nicotine dependence, unspecified, uncomplicated; Z59.0 Homelessness; Z79.1 Long term (current) use of non-steroidal anti-inflammatories (NSAID)
CPT/HCPCS: 97165-GO; G0378; J2001; J2704; P9016; Q9967

== ENCOUNTER → 2018-08-24 | Outpatient (CLI) | payer OTHER, MEDICAID | LOC: BHFA 14:00 | PROVIDERS: ATTEND Internal Medicine Cardiovascular Disease | DX: R06.02 Shortness of breath (principal); I49.3 Ventricular premature depolarization | CPT/HCPCS: 78452; 93017; A9500; J2785 ==

== ENCOUNTER → 2018-08-30 | Outpatient (CLI) | payer OTHER | LOC: BHFA 14:45 | PROVIDERS: ATTEND Internal Medicine Cardiovascular Disease | DX: I49.3 Ventricular premature depolarization (principal) ==

== ENCOUNTER 2018-09-14 09:35 | Day surgery (SDC) | payer OTHER, MEDICAID ==
[2018-09-14] MEDS ORDERED: ASPIRIN EC 325 MG TAB PO ONE (09:36)
[2018-09-14] MEDS ORDERED: diphenhydrAMINE 25 MG CAP PO ONE (09:36)
[2018-09-14] MEDS ORDERED: FAMOTIDINE 20 MG TAB PO ONE (09:36)
[2018-09-14] MEDS ORDERED: NS 1,000 ML IV ONE (09:36)
[2018-09-14] MEDS ORDERED: DIAZEPAM 5 MG TAB PO ONE (09:36)
[2018-09-14 10:39] LABS: PLATELET COUNT 372 10^3/uL (150-400)
[2018-09-14] MEDS ORDERED: MIDAZOLAM 2 MG/2 ML VIAL ONE (10:47)
[2018-09-14] MEDS ORDERED: fentaNYL 100 MCG/2 ML INJ ONE (10:47)
[2018-09-14] MEDS ORDERED: LIDOCAINE 1% 5 ML SDV ONE (10:48)
[2018-09-14 10:54] LABS: PROTIME(PATIENT) 12.8 SEC (12.0-15.0)
--- NOTE | 2018-09-14 11:28 | PDHPUP ---
History & Physical Update H&P update statement: This history and physical update is based on an assessment of the patient which was completed after admission or registration (within 24 hours), but prior to the surgery/procedure. H&P update: H&P reviewed & patient examined, no change in patient's condition since H&P completed
--- NOTE | 2018-09-14 11:29 | PDPROPOC ---
Sedation Plan of Care Sedation Plan of Care: vital signs stable, mental status noted, patient educated of risks, benefits, alternatives, patient can tolerate sedation ASA Classification: ASA 2 Planned drugs: fentanyl, midazolam Mallampati Score: Class 2 Mallampati Reference Image: Patient passed 3-3-2 rule?: Yes
[2018-09-14] MEDS ORDERED: ONDANSETRON 4 MG/2 ML VIAL IVP PRN (12:40)
[2018-09-14] MEDS ORDERED: NITROGLYCERIN 0.4 MG BTL SL PRN (12:40)
[2018-09-14] MEDS ORDERED: ATROPINE SULFATE 1 MG/10 ML SYR IVP PRN (12:40)
--- NOTE | 2018-09-14 13:00 | CPIP ---
[f rep st] INVASIVE CARDIAC PROCEDURE DATE OF PROCEDURE: 09/14/2018 PROCEDURE: 1. Right heart catheterization. 2. Coronary angiography. INDICATION: Preoperative evaluation prior to ascending aortic aneurysm repair. ACCESS: Patient was prepped and draped in sterile fashion. 1% lidocaine was used to anesthetize the right inguinal region. A 6-Djiboutian introducer sheath was placed selectively into the right common fe moral artery via modified Seldinger technique. A 7-Djiboutian introducer sheath was placed selectively i nto the right common femoral vein via modified Seldinger technique. Right heart catheter was advance d into the right atrium and pressure obtained. The right atrial pressure was 7 mmHg. The catheter w as then advanced in the right ventricle and pressure obtained. The right ventricular pressure was 51 /9 mmHg. The catheter was then advanced into the pulmonary artery position and pressure obtained. P ulmonary artery pressure was 59/15 mmHg with a mean pressure of 30 mmHg. The catheter was then advan tisha in the wedge position. Wedge obtained. The pulmonary capillary wedge pressure was 17 mmHg. The pulmonary artery saturation was 58.9. The femoral artery saturation was 92.4, cardiac output 4.41, cardiac index 2.42. CORONARY ANGIOGRAPHY: A 6-Djiboutian JL5 catheter was advanced to the left main coronary artery and imag es obtained. The left main coronary artery was short and gave rise to a circumflex and left anterior descending coronary arteries. The 6-Djiboutian JL5 sub selected the circumflex coronary artery and imag es obtained. The circumflex coronary artery was a large vessel. The circumflex coronary artery was dominant. The circumflex coronary artery gave rise to 2 prominent OM branches, as well as several sm aller posterolateral branches as well as the PDA. The circumflex coronary artery had a discrete 30% stenosis in the mid vessel. The 2nd OM artery was the largest OM artery. It was diseased in the pro ximal segment. There was sequential 30% stenosis present. The 6-Djiboutian JL5 catheter was then exchan ged for a 6-Djiboutian JL4.5 catheter. This was used to engage the left anterior descending coronary art fela and images obtained. The left anterior descending coronary artery gave rise to 2 diagonal branch es. The left anterior descending coronary artery had mild diffuse disease throughout. There was no stenosis greater than 20%. A 6-Djiboutian JR4 was advanced to the right coronary artery and images obtai mia. The right coronary artery was nondominant. The right coronary artery was small. The right cor onary artery appeared normal. LEFT VENTRICULOGRAPHY: Left ventriculography was not performed as catheter did not easily cross the aortic valve. COMPLICATIONS: None. CONCLUSIONS: 1. Mild coronary artery disease without flow limitation. 2. Pulmonary hypertension with a mean pulmonary artery pressure of 30 mmHg. /[id number]/MODL
--- NOTE | 2018-09-17 11:46 | CPEKG ---
Test Reason : OPEN Blood Pressure : / mmHG Vent. Rate : 063 BPM Atrial Rate : 063 BPM P-R Int : 230 ms QRS Dur : 090 ms QT Int : 463 ms P-R-T Axes : 009 -24 032 degrees QTc Int : 475 ms Sinus rhythm Ventricular premature complex Prolonged [place] interval Borderline left axis deviation Confirmed by Elliot Howard ([id number]) on 09/17/2018 11:46:14 AM Referred By: Elliot Howard Confirmed By:Elliot Howard
== END 2018-09-14 15:57 | disposition home or self-care (01) ==
LOC: FCATH 09:35
PROVIDERS: ATTEND Internal Medicine Cardiovascular Disease
DX: Z01.810 Encounter for preprocedural cardiovascular examination (principal); Q23.1 Congenital insufficiency of aortic valve; I27.29 Other secondary pulmonary hypertension; I71.2 Thoracic aortic aneurysm, without rupture; I25.10 Atherosclerotic heart disease of native coronary artery without angina pectoris
CPT/HCPCS: C1760; J1644; J2250; J3010

== ENCOUNTER → 2018-09-17 | Outpatient (CLI) | payer OTHER, MEDICAID | LOC: FIMAGING 13:02 ==

== ENCOUNTER 2018-09-29 07:03 | Inpatient (IN) | payer OTHER, MEDICAID | END 2018-10-04 14:47 | LOC: F2W 07:03 → F2N 14:39 → F2W 10-01 17:29 ==

== ENCOUNTER → 2018-10-12 | Outpatient (CLI) | payer OTHER, MEDICAID | LOC: FIMAGING 10:39 ==